=== PATIENT | female | born 1930 | race Caucasian/White ===

== ENCOUNTER 2018-01-15 18:26 | Inpatient (IN) | payer MEDICAID, MEDICARE ==
[~2018-01-15] VITALS: Ht 165.1 cm; Wt 78.0 kg
[2018-01-15] MEDS ORDERED: Z GUARD REMEDY PASTE 57 GM TUBE TOP PRN (18:30)
[2018-01-15] MEDS ORDERED: OLME40TA12 PO (18:35)
[2018-01-15] MEDS ORDERED: ROSU40TA PO (18:35)
[2018-01-15] MEDS ORDERED: SITA100T PO (18:35)
[2018-01-15] MEDS ORDERED: GLIM1TAB3 PO (18:35)
--- NOTE | 2018-01-15 18:44 | NUR ---
PT received from matthew buckley at 1815. report received from wilbur RASHEED. pt stable when vitals are assessed. mrsa swab done. called MD for orders. will continue to monitor.
[2018-01-15 20:00] VITALS: BP 111/53
[2018-01-15] MEDS: HYDROCODONE/APAP 5-325MG TABLET PO PRN (22:02)
--- NOTE | 2018-01-16 00:24 | NUR ---
Dr. Hassan ordered Lovenox for the patient,called the pharmacy to approved that at 2355. pharmacy preferred to wait until morning to have the lab result. Dr. Wright was aware. He clarified the order to give it to the patient without lab result. Pharmacy approved the medication for 0100. continue to monitor the patient for any bleeding.
[2018-01-16] MEDS: ZOLPIDEM 5 MG TABLET PO PRN (01:09)
[2018-01-16] MEDS: ENOXAPARIN SODIUM 30 MG/0.3 ML DISP.SYRIN SUBCUT SCH ×2 (01:13→21:03)
[2018-01-16] MEDS ORDERED: CLON0.1T PO (01:28)
[2018-01-16] MEDS ORDERED: ALLO300T2 PO (01:28)
[2018-01-16] MEDS ORDERED: CLON1TAB5 PO (01:28)
[2018-01-16] MEDS ORDERED: ESOM40CA PO (01:28)
[2018-01-16] MEDS ORDERED: CARV25TA2 PO (01:28)
[2018-01-16] MEDS ORDERED: AMLO5TAB2 PO (01:28)
[2018-01-16] MEDS ORDERED: DULO30CA2 PO (01:28)
[2018-01-16] MEDS ORDERED: CLOP75TA15 PO (01:28)
[2018-01-16] MEDS ORDERED: ASPI-605 PO (01:28)
[2018-01-16] MEDS ORDERED: GABA-534 PO (01:28)
[2018-01-16] MEDS: HYDROCODONE/APAP 5-325MG TABLET PO PRN (05:46)
[2018-01-16 07:16] LABS: BASOPHILS % (AUTO) 0.7 % (0.0-2.0); EOSINOPHILS % (AUTO) 0.2 % (0.0-7.0); HEMATOCRIT 36.1 % (31.2-41.9); HEMOGLOBIN 11.9 g/dL (10.9-14.3); LYMPHOCYTES # (AUTO) 1.5 K/uL (20.0-40.0); LYMPHOCYTES % (AUTO) 23.1 % (20.5-51.5); MEAN CORPUSCULAR HGB CONC 33 g/dL (32.3-35.6); MEAN CORPUSCULAR VOLUME 81.7 fL (75.5-95.3); MONOCYTES # (AUTO) 0.8 K/uL (2.0-10.0); MONOCYTES % (AUTO) 12.1 % (0.0-11.0); NEUTROPHILS # (AUTO) 4.3 K/uL (1.8-8.9); NEUTROPHILS % (AUTO) 63.9 % (38.5-71.5); PLATELET COUNT (AUTO) 181 K/uL (179-408); RED BLOOD CELL COUNT(AUTO) 4.42 MIL/uL (3.63-4.92); WHITE BLOOD COUNT (AUTO) 6.7 K/uL (3.8-11.8)
[2018-01-16 07:31] LABS: CARBON DIOXIDE 26 mmol/L (21-32); CHLORIDE 106 mmol/L (98-107); CHOLESTEROL 133 mg/dL (<200); GLUCOSE 130 mg/dL (74-106); HDL CHOLESTEROL 31 mg/dL (40-60); MAGNESIUM 2.1 mg/dL (1.8-2.4); PHOSPHOROUS 2.3 mg/dL (2.5-4.9); POTASSIUM 3.6 mmol/L (3.5-5.1); TRIGLYCERIDES 258 MG/DL (30-150); UREA NITROGEN, BLOOD 23 mg/dL (7-18)
[2018-01-16 08:00] VITALS: BP_SYST 132; BP_SYST 149; BP_DIAS 64; BP_DIAS 79
[2018-01-16] MEDS ORDERED: Medication Not On Formulary EA (Sitagliptin Phosphate (Januvia) 100 MG) PO SCH (09:00)
[2018-01-16] MEDS ORDERED: Medication Not On Formulary EA (Glimepiride 1 MG) PO SCH (09:00)
[2018-01-16] MEDS ORDERED: Medication Not On Formulary EA (Olmesartan Medoxomil (Benicar) 40 MG) PO SCH (09:00)
[2018-01-16] MEDS: GLIMEPIRIDE 2 MG TABLET PO SCH (09:18)
[2018-01-16] MEDS: LOSARTAN POTASSIUM 50 MG TABLET PO SCH (09:19)
[2018-01-16] MEDS: LINAGLIPTIN 5 MG TABLET PO SCH (09:19)
[2018-01-16] MEDS: HYDROCODONE/APAP 10-325 MG TABLET PO PRN ×3 (09:34→20:56)
--- NOTE | 2018-01-16 10:24 | NUR ---
Patient noted resting in bed at this time, complaints of right hip pain, MD Alvarez notified for increased dose of pain medication, [place] 10-325 mg ordered and administered, call light in reach, bed locked and in lowest position, all needs met at this time
--- NOTE | 2018-01-16 13:48 | NUR ---
INTERDISCIPLINARY TEAM CONFERENCE
[2018-01-16] MEDS ORDERED: NEUTRA PHOS PACKET PO ONE (15:15)
[2018-01-16 16:44] VITALS: BP 163/91
--- NOTE | 2018-01-16 17:57 | NUR ---
Patient took all medications this shift, pain managed with Luana 10-325mg given twice this shift, dressing changed and intact, small amount of blood tinged drainage noted on dressing, mepilex applied to sacrum, first step mattress delivered and placed on bed, all needs met
[2018-01-16 19:30] VITALS: BP 176/87
[2018-01-16] MEDS: hydrALAZINE HCL 10 MG TABLET PO PRN (20:57)
[2018-01-16] MEDS ORDERED: Medication Not On Formulary EA (Rosuvastatin Calcium (Crestor) 40 MG) PO SCH (21:00)
[2018-01-16] MEDS: ATORVASTATIN 40 MG TABLET PO SCH (21:00)
[2018-01-16 23:00] VITALS: BP 150/80
[2018-01-17] MEDS: ZOLPIDEM 5 MG TABLET PO PRN ×2 (02:15→21:19)
[2018-01-17] MEDS: hydrALAZINE HCL 10 MG TABLET PO PRN (04:43)
[2018-01-17] MEDS: HYDROCODONE/APAP 10-325 MG TABLET PO PRN ×4 (04:44→21:19)
--- NOTE | 2018-01-17 04:52 | NUR ---
pt took pain med Carmichael twice during shift , pt had Ambien for sleep , all needs met during shift . Bed locked and in low position , 3 rails up , and call light at bed .The BURL[employer] WORKER Christine Michele was called for elevated blood pressure and ordered hydralazine 10 mg . Pt hadn a blood pressure of 175 / 86 . Pt given hydralazine 10 mg and BP decreased to 150 / 70 . Pt had a BP of 186 / 98 , 7 hours later in shift . Pt given 10 mg of hydralazine .
[2018-01-17 06:09] VITALS: BP 168/80
[2018-01-17 08:00] VITALS: BP 173/86
[2018-01-17] MEDS: LINAGLIPTIN 5 MG TABLET PO SCH (08:09)
[2018-01-17] MEDS: GLIMEPIRIDE 2 MG TABLET PO SCH (08:10)
[2018-01-17] MEDS: LOSARTAN POTASSIUM 50 MG TABLET PO SCH (08:13)
--- NOTE | 2018-01-17 11:30 | NUR ---
Patient noted resting in bed at this time, complaints of right hip pain, PRN Nemo 10-325 mg administered, call light in reach, bed locked and in lowest position, all needs met at this time
[2018-01-17] MEDS: HYDROCODONE/APAP 5-325MG TABLET PO PRN (14:06)
--- NOTE | 2018-01-17 15:48 | NUR ---
LAB IN [facility] CALLED WITH RESULTS FOLLOWS 1) PATIENT IS POSITIVE FOR MRSA OF NARES MD IRVIN NOTIFIED WITH ORDERS FOR CONTACT ISOLATION AND BACTROBAN OINTMENT X 5 DAYS BID BILATERAL NARES
[2018-01-17] MEDS ORDERED: BISACODYL 5 MG TABLET.DR PO ONE (16:00)
[2018-01-17] MEDS ORDERED: BISACODYL 5 MG TABLET.DR PO PRN (16:15)
[2018-01-17 19:50] VITALS: BP 152/85
[2018-01-17] MEDS: ENOXAPARIN SODIUM 30 MG/0.3 ML DISP.SYRIN SUBCUT SCH (21:24)
[2018-01-17] MEDS: ATORVASTATIN 40 MG TABLET PO SCH (21:27)
[2018-01-17] MEDS: MUPIROCIN 2% OINT 22 GM TUBE NS SCH (21:27)
--- NOTE | 2018-01-17 21:57 | NUR ---
resting in bed. awake alert and oriented. no acute distress noted. needs attended. on contact isolation, (+) MRSA nares. medicated for pain as ordered. will monitor patient. fall precautions maintained.
[2018-01-18] MEDS: HYDROCODONE/APAP 10-325 MG TABLET PO PRN ×3 (02:48→20:32)
[2018-01-18] MEDS: HYDROCODONE/APAP 5-325MG TABLET PO PRN ×2 (06:28→16:47)
[2018-01-18 06:47] VITALS: BP 138/71
--- NOTE | 2018-01-18 07:54 | NUR ---
received report from maintenance technician 2nd shift. patient awake in bed upon initial assessment. patient appeared to have clear, fluid emesis in basin on her lap, small amount. patient refused breakfast, only requested coffee. pain medication provided by maintenance technician 2nd shift effective. will continue to monitor.
[2018-01-18] MEDS: GLIMEPIRIDE 2 MG TABLET PO SCH (08:45)
[2018-01-18] MEDS: LINAGLIPTIN 5 MG TABLET PO SCH (08:45)
[2018-01-18] MEDS: LOSARTAN POTASSIUM 50 MG TABLET PO SCH (08:51)
[2018-01-18] MEDS: MUPIROCIN 2% OINT 22 GM TUBE NS SCH ×2 (09:02→20:34)
[2018-01-18 16:12] VITALS: BP 105/53
[2018-01-18 20:00] VITALS: BP 127/55
[2018-01-18] MEDS: ATORVASTATIN 40 MG TABLET PO SCH (20:32)
[2018-01-18] MEDS: ENOXAPARIN SODIUM 30 MG/0.3 ML DISP.SYRIN SUBCUT SCH (20:35)
--- NOTE | 2018-01-18 22:43 | NUR ---
Received pt resting in bed. Eritrean speaking, able to make needs known. Family at bedside. C/o pain on the right hip surgical site. Meds given as ordered. Dressing changed, no s/s of infection noted. On air mattress. Turned and repositioned. Contact isolation observed. Safety measures maintained. Call light and personal belongings within reach. Will continue to monitor.
[2018-01-18] MEDS: ZOLPIDEM 5 MG TABLET PO PRN (23:41)
[2018-01-19] VITALS (7 sets, daily range): BP systolic 84–150; BP diastolic 41–68
[2018-01-19] MEDS: HYDROCODONE/APAP 10-325 MG TABLET PO PRN (06:46)
[2018-01-19] MEDS ORDERED: ALLOPURINOL 300 MG TABLET PO PRN (08:45)
[2018-01-19] MEDS: GLIMEPIRIDE 2 MG TABLET PO SCH (08:58)
[2018-01-19] MEDS: LOSARTAN POTASSIUM 50 MG TABLET PO SCH (08:58)
[2018-01-19] MEDS: LINAGLIPTIN 5 MG TABLET PO SCH (08:58)
[2018-01-19] MEDS: MUPIROCIN 2% OINT 22 GM TUBE NS SCH ×2 (08:59→20:55)
[2018-01-19] MEDS ORDERED: CARVEDILOL 25 MG TABLET PO SCH (09:00)
[2018-01-19] MEDS ORDERED: Medication Not On Formulary EA (Esomeprazole Mag Trihydrate (Nexium) 40 MG) PO SCH (09:00)
[2018-01-19] MEDS ORDERED: AMLODIPINE 5 MG TABLET PO SCH (09:00)
[2018-01-19] MEDS ORDERED: CLONAZEPAM 1 MG TABLET PO PRN (09:00)
[2018-01-19] MEDS: GABAPENTIN 300 MG CAPSULE PO SCH ×2 (09:06→17:14)
[2018-01-19] MEDS: CLOPIDOGREL 75 MG TABLET PO SCH (09:06)
[2018-01-19] MEDS: CLONIDINE HCL 0.1 MG TABLET PO SCH ×2 (09:07→12:10)
[2018-01-19] MEDS: DULOXETINE 30 MG CAPSULE.DR PO SCH (09:10)
[2018-01-19] MEDS: ASPIRIN EC 81 MG TABLET.DR PO SCH (09:16)
[2018-01-19] MEDS: HYDROCODONE/APAP 5-325MG TABLET PO PRN (09:59)
--- NOTE | 2018-01-19 10:53 | NUR ---
Received patient awake, alert and orientedx4. East Timorese speaking. able to communicate thru translation. Continue on pain management with good effect. no behavioral problem noted. Continue ABT treatment and contact isolation for MRSA. not in distress.
--- NOTE | 2018-01-19 11:11 | NUR ---
Patient blood pressure 63/38, notified. ordered STAT CBC BMP troponin and EKG. not in distress.will continue monitor
[2018-01-19 12:21] LABS: BASOPHILS # (AUTO) 0.1 K/uL (0.0-8.0); BASOPHILS % (AUTO) 0.6 % (0.0-2.0); EOSINOPHILS % (AUTO) 0.3 % (0.0-7.0); HEMATOCRIT 35.4 % (31.2-41.9); HEMOGLOBIN 11.6 g/dL (10.9-14.3); LYMPHOCYTES % (AUTO) 21.3 % (20.5-51.5); MEAN CORPUSCULAR HEMOGLOBIN 27.6 uug (24.7-32.8); MEAN CORPUSCULAR HGB CONC 33 g/dL (32.3-35.6); MEAN CORPUSCULAR VOLUME 84.5 fL (75.5-95.3); MONOCYTES # (AUTO) 0.8 K/uL (2.0-10.0); MONOCYTES % (AUTO) 9.1 % (0.0-11.0); NEUTROPHILS # (AUTO) 6.3 K/uL (1.8-8.9); NEUTROPHILS % (AUTO) 68.7 % (38.5-71.5); RED BLOOD CELL COUNT(AUTO) 4.19 MIL/uL (3.63-4.92)
[2018-01-19 12:29] LABS: CARBON DIOXIDE 26 mmol/L (21-32); CHLORIDE 103 mmol/L (98-107); CREATININE 1.3 mg/dL (0.6-1.3); GLUCOSE 140 mg/dL (74-106); POTASSIUM 3.6 mmol/L (3.5-5.1); UREA NITROGEN, BLOOD 28 mg/dL (7-18)
[2018-01-19 12:35] LABS: PLATELET COUNT (AUTO) 235 K/uL (179-408); WHITE BLOOD COUNT (AUTO) 9.2 K/uL (3.8-11.8)
--- NOTE | 2018-01-19 14:28 | NUR ---
Result of EKG relayed to MD Jiménez. ordered IV NS 1k bolus one time. IV site on left forearm. infusing well. will continue monitor
[2018-01-19] MEDS ORDERED: IV NORMAL SALINE 1,000 ML IV ONE ×2 (14:30)
--- NOTE | 2018-01-19 17:19 | NUR ---
Hold BP medication as per MD due to low BP. latest BP 90/51. Continue bolus of IV NS 1liter on left [id number] needle. BS 86, orange juice given. not in distress. Continue monitoring BP every 1 hour. will continue monitor
--- NOTE | 2018-01-19 19:30 | NUR ---
Received patient in bed, awake and alert, Kenyan speaking with a little Djiboutian. Denies any pain/discomforts at this time. Dressing on right hip dry and intact. RAC HL, intact and patent. Saturating 97% on 2L O2 via NC. HOB slightly elevated. Safety measures and fall precaution maintained. Continue care as planned.
[2018-01-19] MEDS: ENOXAPARIN SODIUM 30 MG/0.3 ML DISP.SYRIN SUBCUT SCH (21:00)
[2018-01-19] MEDS: ATORVASTATIN 40 MG TABLET PO SCH (21:01)
[2018-01-20] VITALS (10 sets, daily range): BP systolic 78–123; BP diastolic 39–63
[2018-01-20] MEDS: HYDROCODONE/APAP 10-325 MG TABLET PO PRN ×4 (04:45→21:00)
[2018-01-20] MEDS: PANTOPRAZOLE SODIUM 40 MG TABLET.DR PO SCH (06:15)
--- NOTE | 2018-01-20 06:48 | NUR ---
Shift End Report: Vs stable. BP WNL. Medicated once for pain with relief. No further complaint presented. Slept well. No fall/injury. No significant event reported. Continue current rehab plan
--- NOTE | 2018-01-20 07:55 | NUR ---
Patient noted resting in bed with eyes closed, no facial cues of pain noted, no signs of distress noted, call light placed in reach, bed locked and in lowest position, all needs met at this time
[2018-01-20] MEDS: GABAPENTIN 300 MG CAPSULE PO SCH ×2 (09:15→17:20)
[2018-01-20] MEDS: DULOXETINE 30 MG CAPSULE.DR PO SCH (09:15)
[2018-01-20] MEDS: CLOPIDOGREL 75 MG TABLET PO SCH (09:16)
[2018-01-20] MEDS: MUPIROCIN 2% OINT 22 GM TUBE NS SCH ×2 (09:16→20:59)
[2018-01-20] MEDS: LINAGLIPTIN 5 MG TABLET PO SCH (09:16)
[2018-01-20] MEDS: ASPIRIN EC 81 MG TABLET.DR PO SCH (09:16)
[2018-01-20] MEDS: GLIMEPIRIDE 2 MG TABLET PO SCH (09:16)
[2018-01-20] MEDS: ATORVASTATIN 40 MG TABLET PO SCH (20:59)
[2018-01-20] MEDS: ENOXAPARIN SODIUM 30 MG/0.3 ML DISP.SYRIN SUBCUT SCH (21:06)
--- NOTE | 2018-01-21 04:50 | NUR ---
alert and oriented x3-4 no acute distress noted. kept comfortable. needs attended. will monitor patient. VSS BP 123/60 HR 74 Resp 17 patient asymptomatic. incontinent of bladder x2. kept clean and dry. refused to be catheterized for urine sample. fall precautions maintained. siderails up for safety. moderate assist with ADL's.
[2018-01-21 05:06] VITALS: BP 134/65
[2018-01-21] MEDS: PANTOPRAZOLE SODIUM 40 MG TABLET.DR PO SCH (06:06)
--- NOTE | 2018-01-21 07:30 | NUR ---
Patient noted resting in bed with eyes closed, arouses easily, complaints of pain in right hip, no signs of distress noted, call light placed in reach, bed locked and in lowest position, all needs met at this time
[2018-01-21 08:23] VITALS: BP 154/69
[2018-01-21] MEDS: GABAPENTIN 300 MG CAPSULE PO SCH ×2 (08:47→17:36)
[2018-01-21] MEDS: LINAGLIPTIN 5 MG TABLET PO SCH (08:47)
[2018-01-21] MEDS: GLIMEPIRIDE 2 MG TABLET PO SCH (08:47)
[2018-01-21] MEDS: DULOXETINE 30 MG CAPSULE.DR PO SCH (08:47)
[2018-01-21] MEDS: CLOPIDOGREL 75 MG TABLET PO SCH (08:47)
[2018-01-21] MEDS: ASPIRIN EC 81 MG TABLET.DR PO SCH (08:47)
[2018-01-21] MEDS: HYDROCODONE/APAP 10-325 MG TABLET PO PRN ×2 (08:48→17:36)
[2018-01-21] MEDS: MUPIROCIN 2% OINT 22 GM TUBE NS SCH ×2 (08:49→21:36)
[2018-01-21 15:36] LABS: *BILIRUBIN,URIN NEGATIVE (NEGATIVE); *BLOOD, URINE Trace-intact (NEGATIVE); *CLARITY,URINE SLIGHTLY CLOUDY (CLEAR); *COLOR,URINE YELLOW (YELLOW); *KETONES,URINE NEGATIVE (NEGATIVE); *PROTEIN,URINE 1+ (NEGATIVE); LEUKOCYTE ESTERASE ,URINE 2+ (NEGATIVE); NITRITE, URINE NEGATIVE (NEGATIVE); UGLUCOSE NEGATIVE (NEGATIVE)
[2018-01-21 15:38] LABS: BACTERIA,URINE FEW /HPF (NONE SEEN); RBC,URINE 0-3 /HPF (0-3); SQUAMOUS EPITHELIAL CELL,UR FEW /HPF (NONE SEEN)
[2018-01-21 16:12] VITALS: BP 114/63
--- NOTE | 2018-01-21 19:24 | NUR ---
Urine analysis collected
[2018-01-21 19:31] VITALS: BP 144/77
[2018-01-21] MEDS: ENOXAPARIN SODIUM 30 MG/0.3 ML DISP.SYRIN SUBCUT SCH (21:30)
[2018-01-21] MEDS: ATORVASTATIN 40 MG TABLET PO SCH (21:33)
[2018-01-21] MEDS: HYDROCODONE/APAP 5-325MG TABLET PO PRN (21:35)
[2018-01-21] MEDS: CEPHALEXIN MONOHYDRATE 500 MG CAPSULE PO SCH (22:13)
[2018-01-22] MEDS: CEPHALEXIN MONOHYDRATE 500 MG CAPSULE PO SCH ×3 (05:22→21:13)
[2018-01-22 05:25] VITALS: BP 147/87
--- NOTE | 2018-01-22 05:41 | NUR ---
Pt slept well during the maintenance technician 3rd shift . Pt c/o pain and received pain medication . No signs of distress and VSS . Bed in low position , wheels locked , side rails up , and bed alarm is on . Pt has call light near her at all times . Pt received a bath at bedside and dressing was changed . Pt had a void x 1 and diaper was changed .
[2018-01-22] MEDS: PANTOPRAZOLE SODIUM 40 MG TABLET.DR PO SCH (06:10)
[2018-01-22] MEDS: HYDROCODONE/APAP 10-325 MG TABLET PO PRN ×3 (06:11→22:53)
--- NOTE | 2018-01-22 07:44 | NUR ---
Patient noted resting in bed with eyes closed, no facial cues of pain notes, no signs of distress at this time, call light in reach, bed locked and in lowest position, x [address], all needs met at this time
[2018-01-22 08:00] VITALS: BP 171/75
[2018-01-22] MEDS: GLIMEPIRIDE 2 MG TABLET PO SCH (08:14)
[2018-01-22] MEDS: LINAGLIPTIN 5 MG TABLET PO SCH (08:14)
[2018-01-22] MEDS: DULOXETINE 30 MG CAPSULE.DR PO SCH (08:14)
[2018-01-22] MEDS: ASPIRIN EC 81 MG TABLET.DR PO SCH (08:15)
[2018-01-22] MEDS: GABAPENTIN 300 MG CAPSULE PO SCH ×2 (08:15→16:58)
[2018-01-22] MEDS: CLOPIDOGREL 75 MG TABLET PO SCH (08:15)
[2018-01-22] MEDS: MUPIROCIN 2% OINT 22 GM TUBE NS SCH (08:18)
[2018-01-22 16:00] VITALS: BP 131/61
[2018-01-22 19:39] VITALS: BP 124/59
[2018-01-22] MEDS: ATORVASTATIN 40 MG TABLET PO SCH (20:14)
[2018-01-22] MEDS: ENOXAPARIN SODIUM 30 MG/0.3 ML DISP.SYRIN SUBCUT SCH (20:19)
--- NOTE | 2018-01-22 20:55 | NUR ---
Upon arrival to room , pt is sitting in the wheelchair with her family in the room . Pt did have assist with using the bathroom and had 1 BM . No signs of distress and no c/o pain . Pt is A & O x 4 , Rwandan speaking only .
[2018-01-22] MEDS: ZOLPIDEM 5 MG TABLET PO PRN (22:52)
[2018-01-23] MEDS: CEPHALEXIN MONOHYDRATE 500 MG CAPSULE PO SCH ×3 (05:30→21:19)
[2018-01-23 05:35] VITALS: BP 148/77
[2018-01-23] MEDS: PANTOPRAZOLE SODIUM 40 MG TABLET.DR PO SCH (06:15)
[2018-01-23 08:00] VITALS: BP 137/76
--- NOTE | 2018-01-23 08:00 | NUR ---
Patient alert, sitting on bed, verbally responsive, not in any form of acute distress. She denies any pain or discomfort at this time. Call light placed within reach. Needs attended to.
[2018-01-23] MEDS: GLIMEPIRIDE 2 MG TABLET PO SCH (08:55)
[2018-01-23] MEDS: DULOXETINE 30 MG CAPSULE.DR PO SCH (08:56)
[2018-01-23] MEDS: CLOPIDOGREL 75 MG TABLET PO SCH (08:56)
[2018-01-23] MEDS: LINAGLIPTIN 5 MG TABLET PO SCH (08:56)
[2018-01-23] MEDS: GABAPENTIN 300 MG CAPSULE PO SCH ×2 (08:56→16:37)
[2018-01-23] MEDS: ASPIRIN EC 81 MG TABLET.DR PO SCH (09:24)
[2018-01-23] MEDS: HYDROCODONE/APAP 5-325MG TABLET PO PRN ×2 (10:38→16:37)
--- NOTE | 2018-01-23 12:30 | NUR ---
Patient out of bed, ambulating with walker with physical therapist. No complain of pain or discomfort, not in any distress.
--- NOTE | 2018-01-23 13:20 | NUR ---
INTERDISCIPLINARY TEAM CONFERENCE
[2018-01-23 16:00] VITALS: BP 143/78
[2018-01-23 20:00] VITALS: BP 154/73
--- NOTE | 2018-01-23 20:59 | NUR ---
Received pt sitting on the wheelchair at bedside. South Korean speaking, able to make needs known. Assisted to the bathroom with assist. Pt now back to bed. No acute distress noted. No c/o pain or discomfort, no facial cues noted. Safety measures and contact isolation maintained. Bed alarm on. Call light and personal belongings within reach. Will continue to monitor.
[2018-01-23] MEDS: ATORVASTATIN 40 MG TABLET PO SCH (21:19)
[2018-01-23] MEDS: ZOLPIDEM 5 MG TABLET PO PRN (21:20)
[2018-01-23] MEDS: ENOXAPARIN SODIUM 30 MG/0.3 ML DISP.SYRIN SUBCUT SCH (21:21)
[2018-01-23 21:30] VITALS: BP 161/64
[2018-01-23] MEDS: hydrALAZINE HCL 10 MG TABLET PO PRN (21:33)
[2018-01-23 22:10] VITALS: BP 149/53
[2018-01-23] MEDS: HYDROCODONE/APAP 10-325 MG TABLET PO PRN (22:16)
--- NOTE | 2018-01-23 22:30 | NUR ---
At 2134, Apresoline was given due to elevated BP 161/64. HR WNL 82. No acute distress noted. No dizziness. Asymptomatic. At 2209, BP decreased to 149/ 53, HR 84. Will continue to monitor.
[2018-01-24] MEDS: CEPHALEXIN MONOHYDRATE 500 MG CAPSULE PO SCH ×3 (06:14→21:00)
[2018-01-24] MEDS: PANTOPRAZOLE SODIUM 40 MG TABLET.DR PO SCH (06:16)
[2018-01-24] MEDS: hydrALAZINE HCL 10 MG TABLET PO PRN (06:23)
[2018-01-24 06:26] VITALS: BP 168/76
--- NOTE | 2018-01-24 06:30 | NUR ---
Apresoline PRN given due to elevated BP of 168/ 76. HR WNL 81. Asymptomatic. No acute distress noted. No c/o pain, discomfort, or dizziness. Will recheck. Will continue to monitor.
[2018-01-24 07:03] VITALS: BP 149/58
--- NOTE | 2018-01-24 07:04 | NUR ---
BP decreased to 149/ 58, HR 79. Will endorse to day shift RN. Continue to monitor.
[2018-01-24 07:34] LABS: BASOPHILS # (AUTO) 0.1 K/uL (0.0-8.0); BASOPHILS % (AUTO) 0.8 % (0.0-2.0); EOSINOPHILS % (AUTO) 0.4 % (0.0-7.0); HEMATOCRIT 33.4 % (31.2-41.9); HEMOGLOBIN 11.1 g/dL (10.9-14.3); LYMPHOCYTES % (AUTO) 25.9 % (20.5-51.5); MEAN CORPUSCULAR HEMOGLOBIN 28.5 uug (24.7-32.8); MEAN CORPUSCULAR HGB CONC 33 g/dL (32.3-35.6); MEAN CORPUSCULAR VOLUME 85.9 fL (75.5-95.3); MONOCYTES # (AUTO) 0.8 K/uL (2.0-10.0); MONOCYTES % (AUTO) 10.6 % (0.0-11.0); NEUTROPHILS # (AUTO) 4.8 K/uL (1.8-8.9); NEUTROPHILS % (AUTO) 62.3 % (38.5-71.5); PLATELET COUNT (AUTO) 266 K/uL (179-408); RED BLOOD CELL COUNT(AUTO) 3.89 MIL/uL (3.63-4.92); WHITE BLOOD COUNT (AUTO) 7.7 K/uL (3.8-11.8)
[2018-01-24 07:54] LABS: THYROID STIMULATING HORMONE 2.076 mIU/mL (0.358-3.740)
--- NOTE | 2018-01-24 08:00 | NUR ---
Patient awake, in bed not in any form of acute distress. She denies any pain or discomfort at this time. Assisted to the bathroom for BM and to void. Pericare provided. Assisted with her needs. Call light placed within reach. Safety measures maintained.
[2018-01-24 08:16] LABS: ALANINE AMINOTRANSFERASE 70 U/L (14-59); ALKALINE PHOSPHATASE 305 U/L (50-136); ASPARTATE AMINOTRANSFERASE 89 U/L (15-37); BILIRUBIN,TOTAL 1.1 mg/dL (0.2-1.0); CARBON DIOXIDE 29 mmol/L (21-32); CHLORIDE 105 mmol/L (98-107); CREATININE 1.1 mg/dL (0.6-1.3); GLUCOSE 139 mg/dL (74-106); MAGNESIUM 1.9 mg/dL (1.8-2.4); PHOSPHOROUS 3.8 mg/dL (2.5-4.9); POTASSIUM 3.9 mmol/L (3.5-5.1); TOTAL PROTEIN, SERUM 5.6 g/dL (6.4-8.2); UREA NITROGEN, BLOOD 18 mg/dL (7-18)
[2018-01-24] MEDS: LINAGLIPTIN 5 MG TABLET PO SCH (08:43)
[2018-01-24] MEDS: GLIMEPIRIDE 2 MG TABLET PO SCH (08:43)
[2018-01-24] MEDS: ASPIRIN EC 81 MG TABLET.DR PO SCH (08:43)
[2018-01-24] MEDS: GABAPENTIN 300 MG CAPSULE PO SCH ×2 (08:43→18:16)
[2018-01-24] MEDS: DULOXETINE 30 MG CAPSULE.DR PO SCH (08:43)
[2018-01-24] MEDS: CLOPIDOGREL 75 MG TABLET PO SCH (08:43)
[2018-01-24 08:48] VITALS: BP 138/76
[2018-01-24] MEDS: HYDROCODONE/APAP 10-325 MG TABLET PO PRN ×2 (12:07→21:06)
[2018-01-24 15:43] VITALS: BP 132/70
--- NOTE | 2018-01-24 17:32 | NUR ---
Dr. Herbert came to see patient, notified MD regarding episodes of hypertension as reported by shift superintendent caustic cresylate nurse. Per MD he will look into it and review her medications. Vital signs throughout the shift were stable. Participated with PT/OT today and tolerated it. No complaints at this time. Addendum: 01/24/18 at 1823 by NISHA GIBBS RN Addendum: Informed MD about negative result of swab of nares for MRSA, MD said OK to discontinue isolation.
[2018-01-24] MEDS ORDERED: hydrALAZINE HCL 10 MG TABLET PO PRN (18:15)
--- NOTE | 2018-01-24 19:30 | NUR ---
PT ALERT AND ORIENTED IN WHEELCHAIR. NO DISTRESS NOTED. COMPLIANT WITH NURSING CARE. CLEAN AND DRY. HIP DRESSING INTACT. SAFETY MAINTAINED. CALL LIGHT WITHIN REACH. WILL CONTINUE TO MONITOR.
[2018-01-24 20:00] VITALS: BP 151/73
[2018-01-24] MEDS: ATORVASTATIN 20 MG TABLET PO SCH (21:00)
[2018-01-24] MEDS: ENOXAPARIN SODIUM 30 MG/0.3 ML DISP.SYRIN SUBCUT SCH (21:00)
[2018-01-25 05:00] VITALS: BP 149/68
[2018-01-25] MEDS: CEPHALEXIN MONOHYDRATE 500 MG CAPSULE PO SCH ×3 (06:09→21:31)
[2018-01-25] MEDS: PANTOPRAZOLE SODIUM 40 MG TABLET.DR PO SCH (06:09)
[2018-01-25] MEDS: HYDROCODONE/APAP 5-325MG TABLET PO PRN (06:09)
--- NOTE | 2018-01-25 06:39 | NUR ---
PT RESTING IN BED. NO DISTRESS NOTED. COMPLIANT WITH NURSING CARE AND MEDICATION. USED BATHROOM THROUGHOUT THE NIGHT, OFFERED TO CHANGE DIAPER AND CLEAN PT THIS MORNING, REFUSED. WILL ENDORSE TO DAYSHIFT. SAFETY MAINTAINED. CALL LIGHT WITHIN REACH. BED ALARM ON.
[2018-01-25] MEDS ORDERED: LISINOPRIL 5 MG TABLET PO SCH (09:00)
[2018-01-25] MEDS: ASPIRIN EC 81 MG TABLET.DR PO SCH (09:17)
[2018-01-25] MEDS: CLOPIDOGREL 75 MG TABLET PO SCH (09:17)
[2018-01-25] MEDS: GLIMEPIRIDE 2 MG TABLET PO SCH (09:17)
[2018-01-25] MEDS: DULOXETINE 30 MG CAPSULE.DR PO SCH (09:17)
[2018-01-25] MEDS: CYANOCOBALAMIN 1,000 MCG TABLET PO SCH (09:18)
[2018-01-25] MEDS: CHOLECALCIFEROL 1,000 UNIT TABLET PO SCH (09:18)
[2018-01-25] MEDS: LINAGLIPTIN 5 MG TABLET PO SCH (09:18)
[2018-01-25] MEDS: GABAPENTIN 300 MG CAPSULE PO SCH ×2 (09:18→17:26)
--- NOTE | 2018-01-25 10:56 | NUR ---
Patient noted sitting up in bed watching tv, no complaints of pain noted, no signs of distress noted, call light in reach, bed locked and in lowest position, x [address], assisted to restroom at this time
[2018-01-25 12:18] VITALS: BP 162/80
[2018-01-25] MEDS: HYDROCODONE/APAP 10-325 MG TABLET PO PRN ×2 (14:23→20:29)
--- NOTE | 2018-01-25 19:43 | NUR ---
Upon arrival to room , pt awake and sitting in wheelchair in room . Pt is A & O x4 , Sammarinese speaking mostly . No signs of distress , pt is c/o pain , a 5 out of 10 . Pt states she prefers to wait until later for pain medication . VSS
[2018-01-25 20:18] VITALS: BP 129/63
[2018-01-25] MEDS: ATORVASTATIN 20 MG TABLET PO SCH (20:27)
[2018-01-25] MEDS: LISINOPRIL 5 MG TABLET PO SCH (20:28)
[2018-01-25] MEDS: ZOLPIDEM 5 MG TABLET PO PRN (20:28)
[2018-01-25] MEDS: ENOXAPARIN SODIUM 30 MG/0.3 ML DISP.SYRIN SUBCUT SCH (20:34)
[2018-01-26] MEDS: CEPHALEXIN MONOHYDRATE 500 MG CAPSULE PO SCH ×3 (06:03→21:02)
[2018-01-26] MEDS: PANTOPRAZOLE SODIUM 40 MG TABLET.DR PO SCH (06:03)
[2018-01-26] MEDS: HYDROCODONE/APAP 5-325MG TABLET PO PRN (06:09)
[2018-01-26 07:00] VITALS: BP 149/65
[2018-01-26 07:26] LABS: BASOPHILS # (AUTO) 0.1 K/uL (0.0-8.0); EOSINOPHILS % (AUTO) 0.3 % (0.0-7.0); HEMATOCRIT 32.5 % (31.2-41.9); HEMOGLOBIN 10.8 g/dL (10.9-14.3); LYMPHOCYTES # (AUTO) 1.8 K/uL (20.0-40.0); LYMPHOCYTES % (AUTO) 27.9 % (20.5-51.5); MEAN CORPUSCULAR HEMOGLOBIN 28.5 uug (24.7-32.8); MEAN CORPUSCULAR HGB CONC 33 g/dL (32.3-35.6); MONOCYTES # (AUTO) 0.8 K/uL (2.0-10.0); MONOCYTES % (AUTO) 11.8 % (0.0-11.0); NEUTROPHILS # (AUTO) 3.8 K/uL (1.8-8.9); PLATELET COUNT (AUTO) 273 K/uL (179-408); RED BLOOD CELL COUNT(AUTO) 3.78 MIL/uL (3.63-4.92); WHITE BLOOD COUNT (AUTO) 6.4 K/uL (3.8-11.8)
[2018-01-26 07:44] LABS: ALANINE AMINOTRANSFERASE 44 U/L (14-59); ALKALINE PHOSPHATASE 210 U/L (50-136); ASPARTATE AMINOTRANSFERASE 30 U/L (15-37); BILIRUBIN,TOTAL 0.7 mg/dL (0.2-1.0); CARBON DIOXIDE 26 mmol/L (21-32); CHLORIDE 107 mmol/L (98-107); CREATININE 1.1 mg/dL (0.6-1.3); GLUCOSE 89 mg/dL (74-106); PHOSPHOROUS 4.2 mg/dL (2.5-4.9); TOTAL PROTEIN, SERUM 5.6 g/dL (6.4-8.2); UREA NITROGEN, BLOOD 27 mg/dL (7-18)
[2018-01-26] MEDS: ASPIRIN EC 81 MG TABLET.DR PO SCH (08:46)
[2018-01-26] MEDS: DULOXETINE 30 MG CAPSULE.DR PO SCH (08:46)
[2018-01-26] MEDS: CYANOCOBALAMIN 1,000 MCG TABLET PO SCH (08:47)
[2018-01-26] MEDS: GLIMEPIRIDE 2 MG TABLET PO SCH (08:47)
[2018-01-26] MEDS: CLOPIDOGREL 75 MG TABLET PO SCH (08:47)
[2018-01-26] MEDS: GABAPENTIN 300 MG CAPSULE PO SCH ×2 (08:47→17:06)
[2018-01-26] MEDS: CHOLECALCIFEROL 1,000 UNIT TABLET PO SCH (08:48)
[2018-01-26] MEDS: LISINOPRIL 5 MG TABLET PO SCH ×2 (08:49→20:49)
[2018-01-26] MEDS: LINAGLIPTIN 5 MG TABLET PO SCH (08:49)
[2018-01-26] MEDS: HYDROCODONE/APAP 10-325 MG TABLET PO PRN ×2 (13:45→20:49)
--- NOTE | 2018-01-26 18:28 | NUR ---
SBAR report received this morning, board updated. Pt assessed, no acute distress, SOB, or pain noted. VS WNL. Pt AAOx4. Bed in locked and lowest position with side rails up x2. Pt able to make needs known and sit up for all meals. Compliant with routine medication administration and therapies as provided. PRN pain medication administered once as ordered, Pt requests additional dose at a later time. Daughter visiting at bedside currently. All comfort and safety needs met promptly throughout this shift. No changes otherwise. Call light within reach. Will continue to monitor and endorse to oncoming evening or night nurse supervisor.
[2018-01-26 20:00] VITALS: BP 126/67
--- NOTE | 2018-01-26 20:00 | NUR ---
Received pt at the beginning of shift, sitting on the wheelchair at bedside. Serbian speaking, able to make needs known. MD at bedside. No acute distress noted. Safety measures maintained. Call light and personal belongings within reach. Will continue to monitor.
[2018-01-26] MEDS: ATORVASTATIN 20 MG TABLET PO SCH (20:48)
[2018-01-26] MEDS: ZOLPIDEM 5 MG TABLET PO PRN (20:49)
[2018-01-26] MEDS: ENOXAPARIN SODIUM 30 MG/0.3 ML DISP.SYRIN SUBCUT SCH (20:54)
[2018-01-27] MEDS: PANTOPRAZOLE SODIUM 40 MG TABLET.DR PO SCH (06:19)
[2018-01-27 06:38] VITALS: BP 145/63
--- NOTE | 2018-01-27 06:39 | NUR ---
Pt slept comfortably t/o the night. All needs attended to promptly. Assisted to the bathroom as needed. No s/s of infection on surgical site. Turned and repositioned. Will endorse to day shift RN. Continue to monitor.
[2018-01-27] MEDS: GABAPENTIN 300 MG CAPSULE PO SCH ×2 (08:22→16:50)
[2018-01-27] MEDS: DULOXETINE 30 MG CAPSULE.DR PO SCH (08:22)
[2018-01-27] MEDS: CLOPIDOGREL 75 MG TABLET PO SCH (08:22)
[2018-01-27] MEDS: CHOLECALCIFEROL 1,000 UNIT TABLET PO SCH (08:22)
[2018-01-27] MEDS: LINAGLIPTIN 5 MG TABLET PO SCH (08:23)
[2018-01-27] MEDS: ASPIRIN EC 81 MG TABLET.DR PO SCH (08:23)
[2018-01-27] MEDS: CYANOCOBALAMIN 1,000 MCG TABLET PO SCH (08:23)
[2018-01-27] MEDS: LISINOPRIL 5 MG TABLET PO SCH ×2 (08:23→20:47)
[2018-01-27] MEDS: GLIMEPIRIDE 2 MG TABLET PO SCH (08:23)
[2018-01-27] MEDS: ONDANSETRON HCL 4 MG TABLET PO PRN (10:08)
[2018-01-27] MEDS ORDERED: ONDANSETRON 4 MG/2 ML VIAL IV PRN (11:45)
[2018-01-27 12:51] LABS: BASOPHILS % (AUTO) 0.3 % (0.0-2.0); HEMATOCRIT 36.4 % (31.2-41.9); HEMOGLOBIN 11.7 g/dL (10.9-14.3); LYMPHOCYTES # (AUTO) 0.5 K/uL (20.0-40.0); LYMPHOCYTES % (AUTO) 3.9 % (20.5-51.5); MEAN CORPUSCULAR HGB CONC 32 g/dL (32.3-35.6); MEAN CORPUSCULAR VOLUME 87.1 fL (75.5-95.3); MONOCYTES # (AUTO) 0.5 K/uL (2.0-10.0); MONOCYTES % (AUTO) 4.5 % (0.0-11.0); NEUTROPHILS # (AUTO) 10.9 K/uL (1.8-8.9); NEUTROPHILS % (AUTO) 91.3 % (38.5-71.5); PLATELET COUNT (AUTO) 280 K/uL (179-408); RED BLOOD CELL COUNT(AUTO) 4.18 MIL/uL (3.63-4.92); WHITE BLOOD COUNT (AUTO) 11.9 K/uL (3.8-11.8)
[2018-01-27 13:08] LABS: ALANINE AMINOTRANSFERASE 105 U/L (14-59); ALKALINE PHOSPHATASE 517 U/L (50-136); ASPARTATE AMINOTRANSFERASE 226 U/L (15-37); BILIRUBIN,DIRECT 1.6 mg/dL (0.0-0.2); BILIRUBIN,TOTAL 2.5 mg/dL (0.2-1.0); CARBON DIOXIDE 27 mmol/L (21-32); CHLORIDE 104 mmol/L (98-107); CREATININE 1.2 mg/dL (0.6-1.3); GLUCOSE 223 mg/dL (74-106); POTASSIUM 3.9 mmol/L (3.5-5.1); TOTAL PROTEIN, SERUM 6.3 g/dL (6.4-8.2); UREA NITROGEN, BLOOD 17 mg/dL (7-18)
--- NOTE | 2018-01-27 14:34 | NUR ---
pt seemed lethargic and pt complaints of pain on abdomen. notified md. MD ordered cbc cmp lipase and lft. Also ordered troponin due to epigastric pain, vomiting and pt looking flushed. results came and trop negative. LFT and WBC elevated. vitals assessed and bp elevated 157/67 hr 90, 02 99 room air. temp 99.0. md ordered fluids. attempted iv insertion 4 times and unsuccessful. awaiting orders.
[2018-01-27 16:18] LABS: LIPASE > 6000 U/L (73-393)
[2018-01-27 16:47] VITALS: BP 111/53
[2018-01-27] MEDS: IV NS 1000 ML 1,000 ML IV SCH (18:25)
--- NOTE | 2018-01-27 18:48 | NUR ---
iv fluids running. encouraged pt to drink ensure. pt agreed. vitals stable. no signs of fever nor pain. will endorse to cage shift manager nurse.
[2018-01-27 20:08] VITALS: BP 156/75
[2018-01-27] MEDS: ATORVASTATIN 20 MG TABLET PO SCH (20:47)
[2018-01-27] MEDS: ENOXAPARIN SODIUM 30 MG/0.3 ML DISP.SYRIN SUBCUT SCH (20:50)
[2018-01-28] MEDS: IV NS 1000 ML 1,000 ML IV SCH ×3 (01:39→21:59)
[2018-01-28 04:31] VITALS: BP 156/62
[2018-01-28] MEDS: PANTOPRAZOLE SODIUM 40 MG TABLET.DR PO SCH (06:20)
[2018-01-28] MEDS: HYDROCODONE/APAP 5-325MG TABLET PO PRN ×3 (06:31→18:44)
[2018-01-28 06:49] LABS: ALANINE AMINOTRANSFERASE 299 U/L (14-59); ALKALINE PHOSPHATASE 532 U/L (50-136); ASPARTATE AMINOTRANSFERASE 449 U/L (15-37); BASOPHILS % (AUTO) 0.1 % (0.0-2.0); BILIRUBIN,DIRECT 1.9 mg/dL (0.0-0.2); BILIRUBIN,TOTAL 2.7 mg/dL (0.2-1.0); CARBON DIOXIDE 26 mmol/L (21-32); CHLORIDE 106 mmol/L (98-107); CREATININE 1.3 mg/dL (0.6-1.3); GLUCOSE 108 mg/dL (74-106); HEMATOCRIT 33.1 % (31.2-41.9); LYMPHOCYTES # (AUTO) 1.1 K/uL (20.0-40.0); LYMPHOCYTES % (AUTO) 11.6 % (20.5-51.5); MAGNESIUM 2.1 mg/dL (1.8-2.4); MEAN CORPUSCULAR HEMOGLOBIN 28.7 uug (24.7-32.8); MEAN CORPUSCULAR HGB CONC 33 g/dL (32.3-35.6); MONOCYTES # (AUTO) 0.8 K/uL (2.0-10.0); MONOCYTES % (AUTO) 8.1 % (0.0-11.0); NEUTROPHILS # (AUTO) 7.8 K/uL (1.8-8.9); NEUTROPHILS % (AUTO) 80.2 % (38.5-71.5); PHOSPHOROUS 3.6 mg/dL (2.5-4.9); PLATELET COUNT (AUTO) 255 K/uL (179-408); POTASSIUM 3.6 mmol/L (3.5-5.1); RED BLOOD CELL COUNT(AUTO) 3.85 MIL/uL (3.63-4.92); TOTAL PROTEIN, SERUM 5.8 g/dL (6.4-8.2); UREA NITROGEN, BLOOD 18 mg/dL (7-18); WHITE BLOOD COUNT (AUTO) 9.7 K/uL (3.8-11.8)
--- NOTE | 2018-01-28 06:53 | NUR ---
PT IN BED RESTING, C/O R HIP PAIN, WAS GIVEN WITH NORCO 1 TAB ORDERED.TURNED AND REPOSITIONED. IV FLUIDS STILL RUNNING ON L ARM MIDLINE. NO C/O NAUSEA/ VOMITING. AFEBRILE. SAFETY MEASURES RENDERED.
--- NOTE | 2018-01-28 06:57 | NUR ---
WOUND CARE DONE. PICTURES TAKEN PER PROTOCOL. PLACED IN CHART.
--- NOTE | 2018-01-28 08:00 | NUR ---
Patient awake, in bed, not in any form of acute distress. No complain of any pain. Denies any nausea or vomiting. Assisted with her needs. Call light placed within reach. Addendum: 01/28/18 at 1944 by NISHA GIBBS RN Addendum: Midline on the left AC in place and patent, IV NS running at 75cc/hr. On air mattress.
[2018-01-28 08:45] VITALS: BP 154/68
[2018-01-28] MEDS: LISINOPRIL 5 MG TABLET PO SCH (09:09)
[2018-01-28] MEDS: DULOXETINE 30 MG CAPSULE.DR PO SCH (09:09)
[2018-01-28] MEDS: GABAPENTIN 300 MG CAPSULE PO SCH ×2 (09:10→17:54)
[2018-01-28] MEDS: ASPIRIN EC 81 MG TABLET.DR PO SCH (09:10)
[2018-01-28] MEDS: LINAGLIPTIN 5 MG TABLET PO SCH (09:10)
[2018-01-28] MEDS: CLOPIDOGREL 75 MG TABLET PO SCH (09:10)
[2018-01-28] MEDS: CHOLECALCIFEROL 1,000 UNIT TABLET PO SCH (09:10)
[2018-01-28] MEDS: CYANOCOBALAMIN 1,000 MCG TABLET PO SCH (09:11)
[2018-01-28] MEDS: GLIMEPIRIDE 2 MG TABLET PO SCH (09:12)
--- NOTE | 2018-01-28 10:27 | NUR ---
Followed up with radiology regarding abdominal ultrasound result ordered 01/27/18 and per tech is not yet done and needs another order to be done today. Patient instructed for NPO prior procedure with verbalized understanding using phone local city driver [phone].
[2018-01-28] MEDS: hydrALAZINE HCL 25 MG TABLET PO PRN (11:18)
[2018-01-28 16:00] VITALS: BP 139/59
--- NOTE | 2018-01-28 16:30 | NUR ---
Assisted patient to the bathroom, perineal care done. Urine specimen collected and brought to the laboratory. Back in bed comfortably. Maintained on air mattress. Safety measures maintained. Call light placed within reach.
[2018-01-28 16:51] LABS: *BILIRUBIN,URIN 1+ (NEGATIVE); *BLOOD, URINE NEGATIVE (NEGATIVE); *KETONES,URINE NEGATIVE (NEGATIVE); *PROTEIN,URINE 1+ (NEGATIVE); LEUKOCYTE ESTERASE ,URINE 1+ (NEGATIVE); NITRITE, URINE NEGATIVE (NEGATIVE); UGLUCOSE NEGATIVE (NEGATIVE)
[2018-01-28 17:53] LABS: *CLARITY,URINE HAZY (CLEAR); *COLOR,URINE DARK YELLOW (YELLOW)
[2018-01-28] MEDS: CARVEDILOL 6.25 MG TABLET PO SCH (17:54)
[2018-01-28 17:56] LABS: BACTERIA,URINE FEW /HPF (NONE SEEN); SQUAMOUS EPITHELIAL CELL,UR MODERATE /HPF (NONE SEEN); TRANSITIONAL EPI CELLS,URINE FEW /LPF (NONE SEEN); YEAST,URINE MANY /HPF (NONE SEEN)
[2018-01-28 17:57] LABS: MUCUS,URINE FEW /LPF (0-FEW)
--- NOTE | 2018-01-28 19:55 | NUR ---
Upon arrival , pt in bed in low sandra's position and awake . Pt is in no distress and has no c/o pain . Bed in low position , wheels locked , bed alarm on , call light is at bed near pt . Family is in room .
[2018-01-28 20:05] VITALS: BP 125/57
[2018-01-28] MEDS: ZOLPIDEM 5 MG TABLET PO PRN (21:09)
[2018-01-28] MEDS: ATORVASTATIN 20 MG TABLET PO SCH (21:09)
[2018-01-28] MEDS: ENOXAPARIN SODIUM 30 MG/0.3 ML DISP.SYRIN SUBCUT SCH (21:14)
[2018-01-29] MEDS: HYDROCODONE/APAP 5-325MG TABLET PO PRN ×3 (06:16→19:47)
[2018-01-29] MEDS: PANTOPRAZOLE SODIUM 40 MG TABLET.DR PO SCH (06:16)
[2018-01-29] MEDS: hydrALAZINE HCL 25 MG TABLET PO PRN (06:17)
[2018-01-29 06:44] VITALS: BP 168/78
[2018-01-29 06:55] LABS: BASOPHILS % (AUTO) 0.4 % (0.0-2.0); EOSINOPHILS % (AUTO) 0.1 % (0.0-7.0); HEMOGLOBIN 10.5 g/dL (10.9-14.3); LYMPHOCYTES # (AUTO) 0.7 K/uL (20.0-40.0); LYMPHOCYTES % (AUTO) 10.8 % (20.5-51.5); MEAN CORPUSCULAR HEMOGLOBIN 28.6 uug (24.7-32.8); MEAN CORPUSCULAR HGB CONC 33 g/dL (32.3-35.6); MEAN CORPUSCULAR VOLUME 86.9 fL (75.5-95.3); MONOCYTES # (AUTO) 0.5 K/uL (2.0-10.0); MONOCYTES % (AUTO) 6.9 % (0.0-11.0); NEUTROPHILS # (AUTO) 5.6 K/uL (1.8-8.9); NEUTROPHILS % (AUTO) 81.8 % (38.5-71.5); PLATELET COUNT (AUTO) 200 K/uL (179-408); RED BLOOD CELL COUNT(AUTO) 3.68 MIL/uL (3.63-4.92); WHITE BLOOD COUNT (AUTO) 6.8 K/uL (3.8-11.8)
--- NOTE | 2018-01-29 07:04 | NUR ---
End of Shift . Pt slept throughout the shift . Pt had c/o pain to right leg , . Pt was given pain medication. Pt had a BP of 168 / 78 at 0617 , was given hydralazine 25 mg . Rechecked BP at 0700 and was 143 / 64 .
[2018-01-29 07:12] LABS: ALANINE AMINOTRANSFERASE 244 U/L (14-59); ALKALINE PHOSPHATASE 430 U/L (50-136); ASPARTATE AMINOTRANSFERASE 247 U/L (15-37); BILIRUBIN,TOTAL 1.6 mg/dL (0.2-1.0); CARBON DIOXIDE 24 mmol/L (21-32); CHLORIDE 107 mmol/L (98-107); CREATININE 0.9 mg/dL (0.6-1.3); GLUCOSE 52 mg/dL (74-106); LIPASE 933 U/L (73-393); PHOSPHOROUS 3.4 mg/dL (2.5-4.9); POTASSIUM 4.1 mmol/L (3.5-5.1); TOTAL PROTEIN, SERUM 5.6 g/dL (6.4-8.2); UREA NITROGEN, BLOOD 14 mg/dL (7-18)
[2018-01-29] MEDS ORDERED: LISINOPRIL 5 MG TABLET PO SCH (09:00)
[2018-01-29] MEDS: GLIMEPIRIDE 2 MG TABLET PO SCH (09:41)
[2018-01-29] MEDS: LINAGLIPTIN 5 MG TABLET PO SCH (09:41)
[2018-01-29] MEDS: GABAPENTIN 300 MG CAPSULE PO SCH ×2 (09:41→16:52)
[2018-01-29] MEDS: DULOXETINE 30 MG CAPSULE.DR PO SCH (09:41)
[2018-01-29] MEDS: CYANOCOBALAMIN 1,000 MCG TABLET PO SCH (09:41)
[2018-01-29] MEDS: CHOLECALCIFEROL 1,000 UNIT TABLET PO SCH (09:42)
[2018-01-29] MEDS: CLOPIDOGREL 75 MG TABLET PO SCH (09:42)
[2018-01-29] MEDS: ASPIRIN EC 81 MG TABLET.DR PO SCH (09:43)
[2018-01-29] MEDS: CARVEDILOL 6.25 MG TABLET PO SCH ×2 (09:48→16:56)
[2018-01-29] MEDS: LISINOPRIL 20 MG TABLET PO SCH ×2 (09:49→16:56)
[2018-01-29 10:09] VITALS: BP 150/64
[2018-01-29] MEDS: IV NS 1000 ML 1,000 ML IV SCH (16:56)
[2018-01-29 16:57] VITALS: BP 151/64
[2018-01-29] MEDS: IV NS 1000 ML 1,000 ML IV PRN (19:57)
[2018-01-29 20:05] VITALS: BP 129/47
--- NOTE | 2018-01-29 20:22 | NUR ---
Upon arrival pt is awake and sitting in bed in semi fowlers position . Pt is c/o pain in right leg , pain is 8 /10 . Pt given pain medication . Bed is in low position , wheels locked , bed alarm on , side rails up x 3, and call light is at bedside near pt . VSS .
[2018-01-29] MEDS: ZOLPIDEM 5 MG TABLET PO PRN (21:00)
[2018-01-29] MEDS: ATORVASTATIN 20 MG TABLET PO SCH (21:00)
[2018-01-29] MEDS: ENOXAPARIN SODIUM 30 MG/0.3 ML DISP.SYRIN SUBCUT SCH (21:03)
--- NOTE | 2018-01-29 22:06 | NUR ---
Bladder scan done and noted to be 693 ml. No acute distress noted. Denies pain or discomfort in lower abdomen, but c/o pain up right upper abd quadrant. No noted grimacing or facial expression indicating pain when bladder scan being done. Per pt, does not need to use the restroom right now. paged. Awaiting response.
--- NOTE | 2018-01-29 22:33 | NUR ---
MD Tinajero called back with no new orders, per MD "just monitor and give her a chance to pee." Safety maintained. Call light within reach. Order noted. Will continue to monitor.
--- NOTE | 2018-01-30 06:04 | NUR ---
Pt voided well x 1 in toilet after encouragement from staff. Assisted to the restroom with walker x 1 person assist. No acute distress. Denies pain or discomfort at this time. No complaints of pain throughout the night. Slept comfortably throughout shift. Safety maintained. Pt assisted back into bed. All due medications well tolerated. Call light and all personal belongings within reach. Will continue to monitor. Will endorse to AM shift.
[2018-01-30] MEDS: PANTOPRAZOLE SODIUM 40 MG TABLET.DR PO SCH (06:05)
[2018-01-30] MEDS: hydrALAZINE HCL 25 MG TABLET PO PRN (06:06)
[2018-01-30] MEDS: HYDROCODONE/APAP 5-325MG TABLET PO PRN ×3 (06:11→17:44)
[2018-01-30 06:22] VITALS: BP 172/69
[2018-01-30 06:36] LABS: BASOPHILS % (AUTO) 0.3 % (0.0-2.0); EOSINOPHILS % (AUTO) 0.2 % (0.0-7.0); HEMOGLOBIN 10.5 g/dL (10.9-14.3); LYMPHOCYTES # (AUTO) 0.8 K/uL (20.0-40.0); LYMPHOCYTES % (AUTO) 10.8 % (20.5-51.5); MEAN CORPUSCULAR HEMOGLOBIN 28.5 uug (24.7-32.8); MEAN CORPUSCULAR HGB CONC 33 g/dL (32.3-35.6); MONOCYTES # (AUTO) 0.5 K/uL (2.0-10.0); MONOCYTES % (AUTO) 7.4 % (0.0-11.0); NEUTROPHILS # (AUTO) 5.7 K/uL (1.8-8.9); NEUTROPHILS % (AUTO) 81.3 % (38.5-71.5); PLATELET COUNT (AUTO) 173 K/uL (179-408); RED BLOOD CELL COUNT(AUTO) 3.67 MIL/uL (3.63-4.92)
[2018-01-30 06:51] LABS: ALANINE AMINOTRANSFERASE 185 U/L (14-59); ALKALINE PHOSPHATASE 431 U/L (50-136); ASPARTATE AMINOTRANSFERASE 128 U/L (15-37); BILIRUBIN,DIRECT 0.7 mg/dL (0.0-0.2); BILIRUBIN,TOTAL 1.2 mg/dL (0.2-1.0); CARBON DIOXIDE 26 mmol/L (21-32); CHLORIDE 109 mmol/L (98-107); POTASSIUM 4.4 mmol/L (3.5-5.1); TOTAL PROTEIN, SERUM 5.5 g/dL (6.4-8.2); UREA NITROGEN, BLOOD 13 mg/dL (7-18)
[2018-01-30 06:53] LABS: GLUCOSE 46 mg/dL (74-106)
--- NOTE | 2018-01-30 06:59 | NUR ---
Lab reported critical value of glucose 46. Patient is alert and oriented, able to verbalize needs. No acute distress noted. paged. Awaiting response. OJ given. Tolerated well. Will re-check sugar. Will continue to monitor.
--- NOTE | 2018-01-30 07:22 | NUR ---
Blood sugar re-checked and noted to be 45. Patient is noted to be agitated, complaining that she wants to sleep. Alert and oriented. No acute distress. No noted signs of hypoglycemia. OJ given again. Awaiting response from . Endorsed to AM shift.
--- NOTE | 2018-01-30 07:57 | NUR ---
Patient awake in bed, alert, verbally responsive, not in any form of acute distress. Blood sugar rechecked 95. Assisted with her breakfast. Attended to her needs. States decreased pain with the pain medication provided by night nurse. No complain of nausea, no vomiting. Call light placed within reach. Midline on the left forearm in place and patent, no noted signs of infection, IV NS running at 60cc/hr. Safety measures maintained. Received a call back from Dr. Tinajero and ordered to do Accu-checks AC and HS. ordered to hold dose of glimepiride and trajenta.
[2018-01-30] MEDS: CARVEDILOL 12.5 MG TABLET PO SCH ×2 (08:00→17:19)
[2018-01-30] MEDS ORDERED: DEXTROSE 50% 50 ML DISP.SYRIN IV PRN (08:00)
[2018-01-30] MEDS ORDERED: INSULIN REGULAR, HUMAN 300 UNIT/3 ML VIAL SQ PRN (08:00)
[2018-01-30] MEDS ORDERED: CARVEDILOL 6.25 MG TABLET PO SCH (08:00)
[2018-01-30] MEDS: GLIMEPIRIDE 2 MG TABLET PO SCH (08:00)
--- NOTE | 2018-01-30 08:30 | NUR ---
Informed patient regarding appointment with surgeon. Assisted patient to the bathroom, she voided and had a BM. Perineal care provided. Ambulated with walker.
--- NOTE | 2018-01-30 08:50 | NUR ---
Patient picked up by [facility] crew via [facility] for appointment with Dr. Morales for follow up, provided list of meds and CD of right hip x-ray. Patient remains alert, verbally responsive, not in any form of acute distress.
[2018-01-30] MEDS: LINAGLIPTIN 5 MG TABLET PO SCH (09:00)
[2018-01-30 09:06] VITALS: BP 108/50
--- NOTE | 2018-01-30 11:00 | NUR ---
Patient back from appointment with Dr. Morales. removed candace on the right hip and applied steri-strips. MD ordered weight bearing as tolerated with assist and to follow up in 6 weeks. Patient alert, not in distress, complaining of 10/10 pain on the right hip. Given PRN Runge as ordered.
[2018-01-30] MEDS: ASPIRIN EC 81 MG TABLET.DR PO SCH (11:08)
[2018-01-30] MEDS: CHOLECALCIFEROL 1,000 UNIT TABLET PO SCH (11:08)
[2018-01-30] MEDS: DULOXETINE 30 MG CAPSULE.DR PO SCH (11:08)
[2018-01-30] MEDS: CYANOCOBALAMIN 1,000 MCG TABLET PO SCH (11:11)
[2018-01-30] MEDS: CLOPIDOGREL 75 MG TABLET PO SCH (11:11)
[2018-01-30] MEDS: LISINOPRIL 20 MG TABLET PO SCH ×2 (11:13→17:19)
[2018-01-30] MEDS: GABAPENTIN 300 MG CAPSULE PO SCH ×2 (11:13→17:19)
[2018-01-30] MEDS: BLOOD SUGAR DIAGNOSTIC 1 EACH STRIP VI SCH ×3 (12:16→21:32)
[2018-01-30] MEDS: IV NS 1000 ML 1,000 ML IV PRN (12:49)
--- NOTE | 2018-01-30 13:00 | NUR ---
Blood sugar 49, patient remains alert, coherent, not in any form of distress, sitting up on the wheelchair, no noted symptoms. Provided with orange juice. Blood sugar went up to 109. Then provided patient with her lunch.
--- NOTE | 2018-01-30 13:41 | NUR ---
INTERDISCIPLINARY TEAM CONFERENCE
--- NOTE | 2018-01-30 14:32 | NUR ---
Received an order from Dr. Holder to advance diet to full liquid diet then to soft diet tomorrow if patient tolerates it.
[2018-01-30 14:45] VITALS: BP 141/56
[2018-01-30 16:45] VITALS: BP 141/56
--- NOTE | 2018-01-30 19:20 | NUR ---
Received patient up in the chair watching TV at this time. Denies any pain/discomforts. No s/s of respiratory distress. Assisted back to bed, repositioned for comfort. Safety measures and fall precaution maintained. Continue care as planned.
[2018-01-30 20:00] VITALS: BP 106/66
--- NOTE | 2018-01-30 21:00 | NUR ---
BS 73 mg/dl apple sauce and apple juice given. Will monitor.
[2018-01-30] MEDS: ATORVASTATIN 20 MG TABLET PO SCH (21:28)
[2018-01-30] MEDS: ENOXAPARIN SODIUM 30 MG/0.3 ML DISP.SYRIN SUBCUT SCH (21:33)
[2018-01-30] MEDS: ZOLPIDEM 5 MG TABLET PO PRN (21:36)
[2018-01-30] MEDS ORDERED: TRAV5DRO EACHEYE (22:25)
[2018-01-30] MEDS ORDERED: DORZ10DR10 OP (22:25)
[2018-01-30] MEDS ORDERED: BRIM5DRO3 OP (22:25)
[2018-01-31 05:51] VITALS: BP 133/61
[2018-01-31] MEDS: PANTOPRAZOLE SODIUM 40 MG TABLET.DR PO SCH (06:46)
[2018-01-31] MEDS: BLOOD SUGAR DIAGNOSTIC 1 EACH STRIP VI SCH ×4 (06:49→20:49)
--- NOTE | 2018-01-31 06:55 | NUR ---
BS 70 mg/dl Gave Apple sauce with AM meds and Apple juice to avoid hypoglycemia episode. Will monitor.
--- NOTE | 2018-01-31 07:26 | NUR ---
Shift End Report: Slept well. VS stable. Monitored for possible hypoglycemia due to latest hypoglycemia episodes. Apple sauce and apple juice given , tolerated well. Right hip steri strips dry, clean and intact. Able to turn self from side to side without difficulty. Able to assist with ADL's. All needs attended and met. No significant event reported all night. Continue current rehab plan.
[2018-01-31] MEDS: GLIMEPIRIDE 2 MG TABLET PO SCH (08:00)
[2018-01-31] MEDS: CARVEDILOL 12.5 MG TABLET PO SCH ×2 (08:25→17:36)
[2018-01-31] MEDS: CHOLECALCIFEROL 1,000 UNIT TABLET PO SCH (08:26)
[2018-01-31] MEDS: ASPIRIN EC 81 MG TABLET.DR PO SCH (08:26)
[2018-01-31] MEDS: CLOPIDOGREL 75 MG TABLET PO SCH (08:26)
[2018-01-31] MEDS: CYANOCOBALAMIN 1,000 MCG TABLET PO SCH (08:27)
[2018-01-31] MEDS: DULOXETINE 30 MG CAPSULE.DR PO SCH (08:33)
[2018-01-31] MEDS: LISINOPRIL 20 MG TABLET PO SCH ×2 (08:33→17:35)
[2018-01-31] MEDS: GABAPENTIN 300 MG CAPSULE PO SCH ×2 (08:35→17:35)
--- NOTE | 2018-01-31 08:45 | NUR ---
Dr. Tinajero saw patient, notified him regarding glimepiride and trajenta dose and current blood sugar and MD ordered to hold the said medications for now. MD also ordered to advance diet to soft cardiac diet.
[2018-01-31] MEDS: LINAGLIPTIN 5 MG TABLET PO SCH (09:00)
[2018-01-31] MEDS: HYDROCODONE/APAP 5-325MG TABLET PO PRN ×2 (09:11→20:51)
[2018-01-31 16:30] VITALS: BP 100/56
--- NOTE | 2018-01-31 19:20 | NUR ---
Received patient up on wheelchair. Daughter at bedside, presented concerns and questions about patient's care. Able to answers and resolved all concerns. Assisted patient to bathroom with walker and to bed. Safety measures and fall precaution maintained.Continue current plan of care.
[2018-01-31 20:32] VITALS: BP 116/69
[2018-01-31] MEDS: ATORVASTATIN 20 MG TABLET PO SCH (20:41)
[2018-01-31] MEDS: ENOXAPARIN SODIUM 30 MG/0.3 ML DISP.SYRIN SUBCUT SCH (20:44)
[2018-01-31] MEDS: ZOLPIDEM 5 MG TABLET PO PRN (20:51)
[2018-02-01 05:29] VITALS: BP 151/51
--- NOTE | 2018-02-01 06:09 | NUR ---
Shift End Report: VS stable. Slept good. Medicated once for complaint of right hip pain with relief. No further complaint presented. No s/s of hypo/hyperglycemia. No fall/injury. Safety measures and fall precaution maintained. All needs attended and met. Continue rehab care as planned
[2018-02-01 06:32] LABS: BASOPHILS % (AUTO) 0.4 % (0.0-2.0); EOSINOPHILS % (AUTO) 0.2 % (0.0-7.0); HEMATOCRIT 31.5 % (31.2-41.9); HEMOGLOBIN 10.2 g/dL (10.9-14.3); LYMPHOCYTES # (AUTO) 0.9 K/uL (20.0-40.0); LYMPHOCYTES % (AUTO) 15.5 % (20.5-51.5); MEAN CORPUSCULAR HGB CONC 32 g/dL (32.3-35.6); MEAN CORPUSCULAR VOLUME 86.7 fL (75.5-95.3); MONOCYTES # (AUTO) 0.5 K/uL (2.0-10.0); MONOCYTES % (AUTO) 7.9 % (0.0-11.0); NEUTROPHILS # (AUTO) 4.7 K/uL (1.8-8.9); PLATELET COUNT (AUTO) 155 K/uL (179-408); RED BLOOD CELL COUNT(AUTO) 3.63 MIL/uL (3.63-4.92); WHITE BLOOD COUNT (AUTO) 6.1 K/uL (3.8-11.8)
[2018-02-01 06:38] LABS: ALANINE AMINOTRANSFERASE 141 U/L (14-59); ALKALINE PHOSPHATASE 449 U/L (50-136); ASPARTATE AMINOTRANSFERASE 102 U/L (15-37); BILIRUBIN,DIRECT 0.5 mg/dL (0.0-0.2); CARBON DIOXIDE 23 mmol/L (21-32); CHLORIDE 108 mmol/L (98-107); CREATININE 0.9 mg/dL (0.6-1.3); GLUCOSE 107 mg/dL (74-106); POTASSIUM 4.2 mmol/L (3.5-5.1); TOTAL PROTEIN, SERUM 5.6 g/dL (6.4-8.2); UREA NITROGEN, BLOOD 13 mg/dL (7-18)
[2018-02-01] MEDS: PANTOPRAZOLE SODIUM 40 MG TABLET.DR PO SCH (07:09)
[2018-02-01] MEDS: BLOOD SUGAR DIAGNOSTIC 1 EACH STRIP VI SCH ×5 (07:12→20:39)
[2018-02-01] MEDS: CHOLECALCIFEROL 1,000 UNIT TABLET PO SCH (08:28)
[2018-02-01] MEDS: DULOXETINE 30 MG CAPSULE.DR PO SCH (08:28)
[2018-02-01] MEDS: CLOPIDOGREL 75 MG TABLET PO SCH (08:29)
[2018-02-01] MEDS: LINAGLIPTIN 5 MG TABLET PO SCH (08:29)
[2018-02-01] MEDS: GLIMEPIRIDE 2 MG TABLET PO SCH (08:29)
[2018-02-01] MEDS: GABAPENTIN 300 MG CAPSULE PO SCH ×2 (08:29→17:21)
[2018-02-01] MEDS: CYANOCOBALAMIN 1,000 MCG TABLET PO SCH (08:29)
[2018-02-01] MEDS: ASPIRIN EC 81 MG TABLET.DR PO SCH (08:29)
[2018-02-01] MEDS: LISINOPRIL 20 MG TABLET PO SCH ×2 (08:30→17:00)
[2018-02-01] MEDS: CARVEDILOL 12.5 MG TABLET PO SCH ×2 (08:30→17:25)
[2018-02-01 08:34] VITALS: BP 141/61
[2018-02-01] MEDS: HYDROCODONE/APAP 5-325MG TABLET PO PRN (13:33)
[2018-02-01 20:08] VITALS: BP 125/51
[2018-02-01] MEDS: ATORVASTATIN 20 MG TABLET PO SCH (20:34)
[2018-02-01] MEDS: ENOXAPARIN SODIUM 30 MG/0.3 ML DISP.SYRIN SUBCUT SCH (20:38)
--- NOTE | 2018-02-02 05:16 | NUR ---
quiet night. no acute distress noted. needs attended. incontinent of bowel and bladder. kept clean and dry. VSS will monitor patient.fall precautions maintained.siderails up for safety.
[2018-02-02 05:54] VITALS: BP 156/68
[2018-02-02] MEDS: PANTOPRAZOLE SODIUM 40 MG TABLET.DR PO SCH (06:20)
[2018-02-02] MEDS: HYDROCODONE/APAP 5-325MG TABLET PO PRN ×3 (06:20→20:55)
[2018-02-02] MEDS: BLOOD SUGAR DIAGNOSTIC 1 EACH STRIP VI SCH ×4 (06:23→20:58)
--- NOTE | 2018-02-02 08:15 | NUR ---
SBAR report received, board updated. Pt assessed, AAO. Pt denies pain at this time, with no acute distress evident. Pt compliant with all routine medication administration and therapies as planned. VS 145/61, 67, 100% RA, and 98.3 temp. Bed in locked and lowest position. Pt sitting up in wheelchair for breakfast. All comfort and safety needs met at this time. Call light within reach. Will continue to monitor.
[2018-02-02] MEDS: CYANOCOBALAMIN 1,000 MCG TABLET PO SCH (08:45)
[2018-02-02] MEDS: CLOPIDOGREL 75 MG TABLET PO SCH (08:45)
[2018-02-02] MEDS: CHOLECALCIFEROL 1,000 UNIT TABLET PO SCH (08:45)
[2018-02-02] MEDS: GLIMEPIRIDE 2 MG TABLET PO SCH (08:45)
[2018-02-02] MEDS: DULOXETINE 30 MG CAPSULE.DR PO SCH (08:45)
[2018-02-02] MEDS: LINAGLIPTIN 5 MG TABLET PO SCH (08:45)
[2018-02-02] MEDS: ASPIRIN EC 81 MG TABLET.DR PO SCH (08:45)
[2018-02-02] MEDS: GABAPENTIN 300 MG CAPSULE PO SCH ×2 (08:45→17:00)
[2018-02-02] MEDS: LISINOPRIL 20 MG TABLET PO SCH ×2 (08:47→17:00)
[2018-02-02] MEDS: CARVEDILOL 12.5 MG TABLET PO SCH ×2 (08:47→18:00)
--- NOTE | 2018-02-02 15:01 | NUR ---
Pt returned from therapy with decreased BP of 89/42, 60, 97% on RA, c/o pain. Pt placed back into bed, reassessed VS of 93/41, 60, 97% RA with temp of 98.1. MD notified of decreased BP and recent UA results, stating he will review, and to continue monitoring. Latest VS include 103/43, 63, and medicated for pain, plus ice patch applied. Will continue to monitor progress.
[2018-02-02 20:03] VITALS: BP 118/56
[2018-02-02] MEDS: ATORVASTATIN 20 MG TABLET PO SCH (20:54)
[2018-02-02] MEDS: ENOXAPARIN SODIUM 30 MG/0.3 ML DISP.SYRIN SUBCUT SCH (21:00)
--- NOTE | 2018-02-03 00:12 | NUR ---
Resting comfortably in bed. aaox4 no acute distress noted needs attended. VSS. BP 118/56 HR 70 resp 18 pulse ox 98% RA Afebrile. Medicated for pain as needed. Compliant with ADL's. Incontinent of urine x2. Kept clean and dry. Slept well throughout the night. Kept comfortable. Siderails up for safety.
[2018-02-03 05:43] VITALS: BP 168/76
[2018-02-03] MEDS: PANTOPRAZOLE SODIUM 40 MG TABLET.DR PO SCH (06:03)
[2018-02-03] MEDS: HYDROCODONE/APAP 5-325MG TABLET PO PRN ×3 (06:04→20:38)
[2018-02-03] MEDS: BLOOD SUGAR DIAGNOSTIC 1 EACH STRIP VI SCH ×5 (06:32→20:41)
--- NOTE | 2018-02-03 07:46 | NUR ---
SBAR report received, board updated. Pt received resting in bed. Bed in locked and lowest position with side rails up x2. All safety measures implemented. Call light placed within reach, will continue to monitor.
[2018-02-03] MEDS: CHOLECALCIFEROL 1,000 UNIT TABLET PO SCH (08:58)
[2018-02-03] MEDS: GLIMEPIRIDE 2 MG TABLET PO SCH (08:58)
[2018-02-03] MEDS: CYANOCOBALAMIN 1,000 MCG TABLET PO SCH (08:58)
[2018-02-03] MEDS: ASPIRIN EC 81 MG TABLET.DR PO SCH (08:59)
[2018-02-03] MEDS: LISINOPRIL 20 MG TABLET PO SCH ×2 (08:59→16:47)
[2018-02-03] MEDS: GABAPENTIN 300 MG CAPSULE PO SCH ×2 (09:00→16:33)
[2018-02-03] MEDS: CLOPIDOGREL 75 MG TABLET PO SCH (09:00)
[2018-02-03] MEDS: CARVEDILOL 12.5 MG TABLET PO SCH ×2 (09:00→17:17)
[2018-02-03] MEDS: DULOXETINE 30 MG CAPSULE.DR PO SCH (09:00)
[2018-02-03] MEDS: LINAGLIPTIN 5 MG TABLET PO SCH (09:00)
[2018-02-03 09:05] VITALS: BP 176/77
[2018-02-03] MEDS: ONDANSETRON HCL 4 MG TABLET PO PRN (09:08)
--- NOTE | 2018-02-03 18:40 | NUR ---
Pt BP continues to fluctuate with therapy, from 100/45 to 73/39 while sitting in chair. Currently VS stable at 116/58, 75 HR. Pt Initial BS at 1630 of 66 re checked after drinking orange and apple juice remaining 66 BS. made aware. Additional OJ administered and BS milagros to 94. BP medications held this evening. Pt seen by Room Service Attendant for medication adjustment. Pt continues to remain asymptomatic and no acute distress. Pain medication administered once per PRN policy and ice pack applied. Call light and personal items placed within reach. Pt assisted to bathroom, voided, changed, clean and dry, helped into bed. Pt repositioned for comfort. IV midline flushed and patent. Will continue to monitor and endorse to oncoming maintenance technician 3rd shift.
[2018-02-03 19:34] VITALS: BP 100/63
--- NOTE | 2018-02-03 20:12 | NUR ---
resting in bed. aaox4 needs attended. kept comfortable. denies any pain at this time. BP 100/63 HR 73 Resp 18 Temp 98.4 pulse ox 07% RA. Will monitor patient. fall precautions maintained. seen by Dr Reid(paper conservator) earlier. Incontinent of urine x2 Kept clean and dry. o acute distress noted. fall precautions maintained.siderails up for safety.
[2018-02-03] MEDS: ATORVASTATIN 20 MG TABLET PO SCH (20:38)
[2018-02-03] MEDS: ENOXAPARIN SODIUM 30 MG/0.3 ML DISP.SYRIN SUBCUT SCH (20:45)
[2018-02-04 05:35] VITALS: BP 155/76
[2018-02-04] MEDS: PANTOPRAZOLE SODIUM 40 MG TABLET.DR PO SCH (06:12)
[2018-02-04] MEDS: HYDROCODONE/APAP 5-325MG TABLET PO PRN (06:13)
[2018-02-04] MEDS: BLOOD SUGAR DIAGNOSTIC 1 EACH STRIP VI SCH (06:53)
--- NOTE | 2018-02-04 07:16 | NUR ---
accucheck 47 OJ +sugar given recheck BS 88
[2018-02-04 07:46] LABS: HEMOGLOBIN 10.2 g/dL (10.9-14.3); RED BLOOD CELL COUNT(AUTO) 3.65 MIL/uL (3.63-4.92); WHITE BLOOD COUNT (AUTO) 5.3 K/uL (3.8-11.8)
[2018-02-04 07:47] LABS: BASOPHILS % (AUTO) 0.4 % (0.0-2.0); EOSINOPHILS % (AUTO) 0.2 % (0.0-7.0); HEMATOCRIT 32.1 % (31.2-41.9); LYMPHOCYTES % (AUTO) 18.6 % (20.5-51.5); MEAN CORPUSCULAR HGB CONC 32 g/dL (32.3-35.6); MEAN CORPUSCULAR VOLUME 87.8 fL (75.5-95.3); MONOCYTES # (AUTO) 0.5 K/uL (2.0-10.0); MONOCYTES % (AUTO) 10.3 % (0.0-11.0); NEUTROPHILS # (AUTO) 3.8 K/uL (1.8-8.9); NEUTROPHILS % (AUTO) 70.5 % (38.5-71.5); PLATELET COUNT (AUTO) 195 K/uL (179-408)
[2018-02-04 08:07] LABS: ALANINE AMINOTRANSFERASE 186 U/L (14-59); ALKALINE PHOSPHATASE 518 U/L (50-136); ASPARTATE AMINOTRANSFERASE 153 U/L (15-37); BILIRUBIN,TOTAL 0.9 mg/dL (0.2-1.0); CARBON DIOXIDE 29 mmol/L (21-32); CHLORIDE 107 mmol/L (98-107); CREATININE 1.3 mg/dL (0.6-1.3); GLUCOSE 137 mg/dL (74-106); PHOSPHOROUS 3.6 mg/dL (2.5-4.9); POTASSIUM 5.5 mmol/L (3.5-5.1); TOTAL PROTEIN, SERUM 5.8 g/dL (6.4-8.2); UREA NITROGEN, BLOOD 13 mg/dL (7-18)
[2018-02-04] MEDS: LINAGLIPTIN 5 MG TABLET PO SCH (08:50)
[2018-02-04] MEDS: GABAPENTIN 300 MG CAPSULE PO SCH (08:50)
[2018-02-04] MEDS: CYANOCOBALAMIN 1,000 MCG TABLET PO SCH (08:51)
[2018-02-04] MEDS: CHOLECALCIFEROL 1,000 UNIT TABLET PO SCH (08:52)
[2018-02-04] MEDS: DULOXETINE 30 MG CAPSULE.DR PO SCH (08:53)
[2018-02-04] MEDS: CLOPIDOGREL 75 MG TABLET PO SCH (08:53)
[2018-02-04] MEDS: ASPIRIN EC 81 MG TABLET.DR PO SCH (08:53)
[2018-02-04] MEDS ORDERED: LISINOPRIL 20 MG TABLET PO SCH ×2 (09:00)
[2018-02-04] MEDS ORDERED: BISOPROLOL FUMARATE 5 MG TABLET PO SCH (09:00)
--- NOTE | 2018-02-04 09:10 | NUR ---
Received patient awake, alert and oriented x4. Kenyan speaking. left arm IV site intact, no signs of infiltration. lactic acid critical values result of 3 noted. MD Herbert notified and ordered transfer to telemetry for further observation. telemetry charge nurse and in housekeeping aide aware. Daughter Brook made aware. morning medicine given except BP pills. tolerated well. Latest BP 100/52 Pulse OXY: 94% . not in distress. will continue monitor
[2018-02-04] MEDS ORDERED: SWABABLE VALVE TRANSFER SET EA MC ONE (10:33)
[2018-02-04] MEDS ORDERED: IV NORMAL SALINE 250 ML IV ONE (10:33)
[2018-02-04] MEDS ORDERED: IOHEXOL 300MG/ML 100 ML INFUS..BTL ONE (10:33)
[2018-02-04 11:55] VITALS: BP 100/52
--- NOTE | 2018-02-04 12:07 | NUR ---
Patient went to radiologist for CAT scan on abdomen and pelvis with contrast. Consent signed by the patient. Report given to activities manager Norma, Patient will go directly after CAT scan to telemetry. not in distress.
--- NOTE | 2018-02-04 12:29 | NUR ---
Patient discharge to telemtry around 1215pm . not in distress.
[2018-02-04] MEDS ORDERED: ONDA4TAB5 PO (13:20)
[2018-02-04] MEDS ORDERED: ONDA4TAB8 IV (13:20)
[2018-02-04] MEDS ORDERED: CHOL200010 PO (13:20)
[2018-02-04] MEDS ORDERED: INSU100V28 SQ (13:20)
[2018-02-04] MEDS ORDERED: ZOLP5TAB8 PO (13:20)
[2018-02-04] MEDS ORDERED: LISI-603 PO (13:20)
[2018-02-04] MEDS ORDERED: BISA-79 PO (13:20)
[2018-02-04] MEDS ORDERED: BISO5TAB2 PO (13:20)
[2018-02-04] MEDS ORDERED: LINA5TAB PO (13:20)
[2018-02-04] MEDS ORDERED: HYDR-3974 PO (13:20)
[2018-02-04] MEDS ORDERED: ENOX40DI SQ (13:20)
[2018-02-04] MEDS ORDERED: BLOO-668 IN (13:20)
[2018-02-04] MEDS ORDERED: ATOR20TA PO (13:20)
[2018-02-04] MEDS ORDERED: PANT40TA4 PO (13:20)
[2018-02-04] MEDS ORDERED: DEXT50DI8 IV (13:20)
[2018-02-04] MEDS ORDERED: HYDR-4076 PO (13:20)
[2018-02-04] MEDS ORDERED: CYAN10009 PO (13:20)
[2018-02-07] MEDS ORDERED: DOCU-141 PO (12:14)
[2018-02-07] MEDS ORDERED: BRIM10DR6 LEFTEYE (12:14)
[2018-02-07] MEDS ORDERED: ACID1TAB4 PO (12:14)
[2018-02-07] MEDS ORDERED: DORZ10DR13 LEFTEYE (12:14)
[2018-02-07] MEDS ORDERED: ALBU2.5V7 NEB (12:14)
[2018-02-07] MEDS ORDERED: SULF1TAB3 PO (12:14)
[2018-02-07] MEDS ORDERED: CRAN450T9 PO (12:14)
[2018-02-07] MEDS ORDERED: LISI10TA5 PO (12:14)
[2018-02-07] MEDS ORDERED: FERR325T28 PO (12:14)
[2018-02-07] MEDS ORDERED: ATOR10TA PO (12:14)
[2018-02-07] MEDS ORDERED: HYDR25TA86 PO (12:14)
[2018-02-07] MEDS ORDERED: PROT30LI PO (12:14)
[2018-02-07] MEDS ORDERED: POLY15DR27 EACHEYE (12:14)
[2018-02-07] MEDS ORDERED: HYDR-3326 PO (12:14)
[2018-02-07] MEDS ORDERED: ACET325T53 PO (12:14)
[2018-02-07] MEDS ORDERED: ALLO100T PO (12:14)
[2018-02-07] MEDS ORDERED: ZOLP5TAB8 PO (12:14)
[2018-02-07] MEDS ORDERED: LATA2.5D2 EACHEYE (12:14)
[2018-02-07] MEDS ORDERED: MULT1TAB73 PO (12:14)
== END 2018-02-04 12:15 | disposition short-term general hospital (02) | DRG 862 ==
PROVIDERS: ADMIT Physical Medicine & Rehabilitation Pain Medicine; ATTEND Physical Medicine & Rehabilitation Pain Medicine
DX: Z47.1 Aftercare following joint replacement surgery (principal); N17.0 Acute kidney failure with tubular necrosis; E43 Unspecified severe protein-calorie malnutrition; I95.9 Hypotension, unspecified; D68.59 Other primary thrombophilia; I11.0 Hypertensive heart disease with heart failure; E11.649 Type 2 diabetes mellitus with hypoglycemia without coma; I50.32 Chronic diastolic (congestive) heart failure; I50.30 Unspecified diastolic (congestive) heart failure; Z96.641 Presence of right artificial hip joint; N39.0 Urinary tract infection, site not specified; G62.9 Polyneuropathy, unspecified; I05.9 Rheumatic mitral valve disease, unspecified; K85.90 Acute pancreatitis without necrosis or infection, unspecified; R41.82 Altered mental status, unspecified; I25.10 Atherosclerotic heart disease of native coronary artery without angina pectoris; Z96.41 Presence of insulin pump (external) (internal); R26.9 Unspecified abnormalities of gait and mobility; E55.9 Vitamin D deficiency, unspecified; E78.5 Hyperlipidemia, unspecified; F32.9 Major depressive disorder, single episode, unspecified; F41.9 Anxiety disorder, unspecified; M10.9 Gout, unspecified; Z88.5 Allergy status to narcotic agent; Z91.81 History of falling; E53.8 Deficiency of other specified B group vitamins
CPT/HCPCS: 36415; 36569; 70030-TC; 71045; 73502; 76705; 82306; 83605; 83690; 83735; 84100; 84443; 85025; 92526; 92610; 93005; 97110; 97112; 97116; 97530; 97535; A4663; C1758; J1650; J1815; J7030; J7050; Q0162; Q9967

== ENCOUNTER 2018-02-04 12:31 | Inpatient (IN) | payer MEDICAID, MEDICARE ==
[~2018-02-04] VITALS: Ht 160 cm; Wt 77.1 kg
[2018-02-04 12:00] VITALS: BP 98/62
--- NOTE | 2018-02-04 12:00 | NUR ---
Received pt via wheelchair from [facility]. No apparent s/s of SOB, pain, distress or discomfort.
--- NOTE | 2018-02-04 12:30 | NUR ---
aware of patient's arrival to the med-surg/tele floor.
[~2018-02-04 12:31] MED LIST: ALLO300T2 PO; AMLO5TAB2 PO; ASPI-605 PO; BRIM5DRO3 OP; CARV25TA2 PO; CLON0.1T PO; CLON1TAB5 PO; CLOP75TA15 PO; DORZ10DR10 OP; DULO30CA2 PO; ESOM40CA PO; GABA-534 PO; GLIM1TAB3 PO; OLME40TA12 PO; ROSU40TA PO; SITA100T PO; TRAV5DRO EACHEYE
[2018-02-04] MEDS ORDERED: DEXT50DI8 IV (13:20)
[2018-02-04] MEDS ORDERED: CYAN10009 PO (13:20)
[2018-02-04] MEDS ORDERED: ONDA4TAB5 PO (13:20)
[2018-02-04] MEDS ORDERED: PANT40TA4 PO (13:20)
[2018-02-04] MEDS ORDERED: ATOR20TA PO (13:20)
[2018-02-04] MEDS ORDERED: BISA-79 PO (13:20)
[2018-02-04] MEDS ORDERED: INSU100V28 SQ (13:20)
[2018-02-04] MEDS ORDERED: LINA5TAB PO (13:20)
[2018-02-04] MEDS ORDERED: CHOL200010 PO (13:20)
[2018-02-04] MEDS ORDERED: ENOX40DI SQ (13:20)
[2018-02-04] MEDS ORDERED: LISI-603 PO (13:20)
[2018-02-04] MEDS ORDERED: BLOO-668 IN (13:20)
[2018-02-04] MEDS ORDERED: ZOLP5TAB8 PO (13:20)
[2018-02-04] MEDS ORDERED: HYDR-4076 PO (13:20)
[2018-02-04] MEDS ORDERED: HYDR-3974 PO (13:20)
[2018-02-04] MEDS ORDERED: BISO5TAB2 PO (13:20)
[2018-02-04] MEDS ORDERED: ONDA4TAB8 IV (13:20)
--- NOTE | 2018-02-04 15:00 | NUR ---
Second med con done with pharmacist. Dr blakely
[2018-02-04 15:59] VITALS: BP_SYST 109; BP_SYST 98; BP_DIAS 51; BP_DIAS 61
[2018-02-04] MEDS: HYDROCODONE/APAP 5-325MG TABLET PO PRN (17:48)
--- NOTE | 2018-02-04 18:30 | NUR ---
Provide the pt with a wheelchair, walker and commode
--- NOTE | 2018-02-04 18:45 | NUR ---
Per malathi Sahu to [place] tele
--- NOTE | 2018-02-04 19:10 | NUR ---
RECEIVED PT ON WHEELCHAIR, AAOX4. BAHRAINI SPEAKING, NO SOB, DENIES ANY CHEST PAIN. MIDLINE ON LFA, PATENT AND INTACT. SAFETY MEASURE INITIATED, CALL MOLINA WITHIN REACH.
[2018-02-04 20:00] VITALS: BP 122/61
[2018-02-04 20:07] LABS: AMYLASE 60 U/L (25-115); LIPASE 355 U/L (73-393)
[2018-02-04] MEDS ORDERED: DEXTROSE 50% 50 ML DISP.SYRIN IV PRN (20:45)
[2018-02-04] MEDS ORDERED: ONDANSETRON 4 MG/2 ML VIAL IV PRN (20:45)
[2018-02-04] MEDS ORDERED: ALBUTEROL SULFATE 2.5 MG/3 ML NEBU NEB PRN (20:45)
[2018-02-04] MEDS ORDERED: BISACODYL 5 MG TABLET.DR PO PRN (20:45)
[2018-02-04] MEDS ORDERED: hydrALAZINE HCL 25 MG TABLET PO PRN (20:45)
[2018-02-04] MEDS ORDERED: ACETAMINOPHEN 325 MG TABLET PO PRN (20:45)
[2018-02-04] MEDS ORDERED: ALLOPURINOL 300 MG TABLET PO PRN (20:45)
[2018-02-04] MEDS ORDERED: INSULIN REGULAR, HUMAN 300 UNIT/3 ML VIAL SQ PRN (20:45)
[2018-02-04] MEDS ORDERED: CLONAZEPAM 1 MG TABLET PO PRN (20:45)
[2018-02-04] MEDS: BLOOD SUGAR DIAGNOSTIC 1 EACH STRIP VI SCH (21:25)
[2018-02-04] MEDS: ENOXAPARIN SODIUM 40 MG/0.4 ML DISP.SYRIN SQ SCH (21:35)
[2018-02-04] MEDS: ATORVASTATIN 20 MG TABLET PO SCH (21:35)
[2018-02-04] MEDS ORDERED: CEFTRIAXONE 1 G VIAL ONE (21:39)
[2018-02-04 22:38] LABS: *BILIRUBIN,URIN NEGATIVE (NEGATIVE); *BLOOD, URINE 1+ (NEGATIVE); *CLARITY,URINE SLIGHTLY CLOUDY (CLEAR); *COLOR,URINE YELLOW (YELLOW); *KETONES,URINE NEGATIVE (NEGATIVE); *PROTEIN,URINE 2+ (NEGATIVE); LEUKOCYTE ESTERASE ,URINE 1+ (NEGATIVE); NITRITE, URINE POSITIVE (NEGATIVE); PH,URINE 8.5 (5.0-8.0); UGLUCOSE NEGATIVE (NEGATIVE)
[2018-02-04 22:45] LABS: BACTERIA,URINE MANY /HPF (NONE SEEN); MUCUS,URINE FEW /LPF (0-FEW); SQUAMOUS EPITHELIAL CELL,UR FEW /HPF (NONE SEEN); WBC,URINE 50-80 /HPF (0-3)
[2018-02-04] MEDS: CEFTRIAXONE 1 G in IV DEXTROSE 5% 50 ML IV SCH (23:01)
[2018-02-05] MEDS: HYDROCODONE/APAP 5-325MG TABLET PO PRN ×3 (00:12→18:52)
[2018-02-05] MEDS: ZOLPIDEM 5 MG TABLET PO PRN ×2 (01:42→21:21)
[2018-02-05 05:12] VITALS: BP 153/75
[2018-02-05 06:26] LABS: BASOPHILS % (AUTO) 0.5 % (0.0-2.0); EOSINOPHILS % (AUTO) 0.2 % (0.0-7.0); HEMOGLOBIN 10.6 g/dL (10.9-14.3); LYMPHOCYTES # (AUTO) 1.3 K/uL (20.0-40.0); LYMPHOCYTES % (AUTO) 22.2 % (20.5-51.5); MEAN CORPUSCULAR HEMOGLOBIN 28.1 uug (24.7-32.8); MEAN CORPUSCULAR HGB CONC 32 g/dL (32.3-35.6); MEAN CORPUSCULAR VOLUME 87.5 fL (75.5-95.3); MONOCYTES # (AUTO) 0.6 K/uL (2.0-10.0); MONOCYTES % (AUTO) 10.2 % (0.0-11.0); NEUTROPHILS # (AUTO) 3.9 K/uL (1.8-8.9); NEUTROPHILS % (AUTO) 66.9 % (38.5-71.5); PLATELET COUNT (AUTO) 243 K/uL (179-408); RED BLOOD CELL COUNT(AUTO) 3.78 MIL/uL (3.63-4.92); WHITE BLOOD COUNT (AUTO) 5.8 K/uL (3.8-11.8)
[2018-02-05] MEDS: BLOOD SUGAR DIAGNOSTIC 1 EACH STRIP VI SCH ×4 (06:28→21:10)
[2018-02-05 06:41] LABS: IRON, SERUM 29 ug/dL (50-175)
--- NOTE | 2018-02-05 06:45 | NUR ---
PT RESTING COMFORTABLY IN BED, NO SIGNS OF RESPIRATORY DISTRESS NOTED. MIDLINE ON LFA, PATENT AND INTACT. ALL NEEDS MET AND ATTENDED. SAFE ENVIRONMENT MAINTAINED AT ALL TIMES, CALL MOLINA WITHIN REACH.
--- NOTE | 2018-02-05 07:30 | NUR ---
Sleeping, appears comfortable. Bed alarm on
[2018-02-05 07:47] LABS: ALANINE AMINOTRANSFERASE 159 U/L (14-59); ALKALINE PHOSPHATASE 482 U/L (50-136); ASPARTATE AMINOTRANSFERASE 99 U/L (15-37); BILIRUBIN,TOTAL 0.7 mg/dL (0.2-1.0); CARBON DIOXIDE 28 mmol/L (21-32); CHLORIDE 104 mmol/L (98-107); CREATININE 1.1 mg/dL (0.6-1.3); GLUCOSE 88 mg/dL (74-106); LIPASE 234 U/L (73-393); MAGNESIUM 2.1 mg/dL (1.8-2.4); PHOSPHOROUS 3.8 mg/dL (2.5-4.9); POTASSIUM 4.5 mmol/L (3.5-5.1); TOTAL PROTEIN, SERUM 6.2 g/dL (6.4-8.2); UREA NITROGEN, BLOOD 14 mg/dL (7-18)
[2018-02-05] MEDS: DULOXETINE 30 MG CAPSULE.DR PO SCH (09:37)
[2018-02-05] MEDS: CHOLECALCIFEROL 1,000 UNIT TABLET PO SCH (09:38)
[2018-02-05] MEDS: LINAGLIPTIN 5 MG TABLET PO SCH (09:38)
[2018-02-05] MEDS: CLOPIDOGREL 75 MG TABLET PO SCH (09:38)
[2018-02-05] MEDS: GABAPENTIN 300 MG CAPSULE PO SCH ×2 (09:38→17:16)
[2018-02-05] MEDS: CYANOCOBALAMIN 1,000 MCG TABLET PO SCH (09:38)
[2018-02-05] MEDS: LISINOPRIL 20 MG TABLET PO SCH (09:38)
[2018-02-05] MEDS: BISOPROLOL FUMARATE 5 MG TABLET PO SCH (09:39)
[2018-02-05] MEDS: PANTOPRAZOLE SODIUM 40 MG TABLET.DR PO SCH (09:42)
[2018-02-05] MEDS: ASPIRIN EC 81 MG TABLET.DR PO SCH (09:43)
--- NOTE | 2018-02-05 10:00 | NUR ---
PT eval initiated. Assisted out of bed, ambulating with FWW, WBAT then sitting on the chair
[2018-02-05 11:31] VITALS: BP 106/55
--- NOTE | 2018-02-05 14:00 | NUR ---
OT eval done, then sitting on the chair.
[2018-02-05 15:42] VITALS: BP 103/52
[2018-02-05] MEDS ORDERED: POLYVINYL ALCOHOL OPHT DROPS 15 ML BOTTLE EACHEYE PRN (17:30)
[2018-02-05] MEDS ORDERED: BRIMONIDINE-P 0.1% OPHTH DROP 5 ML DROPS LEFTEYE SCH (17:30)
--- NOTE | 2018-02-05 18:35 | NUR ---
Eye drops for glaucoma clarified with orders. Discussed with patient and daughter
[2018-02-05] MEDS: BRIMONIDINE 0.2% OPHT DROP 10 ML BOTTLE LEFTEYE SCH (18:38)
[2018-02-05 20:00] VITALS: BP 128/53
--- NOTE | 2018-02-05 20:00 | NUR ---
RECEIVED PATIENT AWAKE, SITTING IN W/C IN BEDSIDE. PATIENT IS A/O X4. NIGERIAN SPEAKING BUT ABLE TO MAKE NEEDS KNOWN AND VERBALIZES UNDERSTANDING. VSS. MID-LINE INTACT AND NOTED TO LEFT UPPER ARM. CALL LIGHT IN REACH. ALL NEEDS ATTENDED. WILL CONTINUE TO MONITOR AND ASSESS.
[2018-02-05] MEDS ORDERED: TRAVOPROST 0.004% OPHT DROP 2.5 ML BOTTLE EACHEYE SCH (21:00)
[2018-02-05] MEDS: CEFTRIAXONE 1 G in IV DEXTROSE 5% 50 ML IV SCH (21:04)
[2018-02-05] MEDS: ENOXAPARIN SODIUM 40 MG/0.4 ML DISP.SYRIN SQ SCH (21:10)
[2018-02-05] MEDS: ATORVASTATIN 20 MG TABLET PO SCH (21:10)
[2018-02-05] MEDS: LATANOPROST OPHT DROP 2.5 ML BOTTLE EACHEYE SCH (21:11)
[2018-02-05] MEDS: DORZOLAMIDE/TIMOLOL OPHT DROP 10 ML BOTTLE LEFTEYE SCH (21:11)
--- NOTE | 2018-02-06 00:30 | NUR ---
REPORT GIVEN TO RN.
--- NOTE | 2018-02-06 01:09 | NUR ---
Received pt sleeping comfortably in bed. No acute distress noted. Pt has left upper arm midline, intact. Safety measures maintained. Call light and personal belongings within reach. Will continue to monitor.
[2018-02-06 04:38] VITALS: BP 159/77
[2018-02-06] MEDS: PANTOPRAZOLE SODIUM 40 MG TABLET.DR PO SCH (06:31)
[2018-02-06] MEDS: BLOOD SUGAR DIAGNOSTIC 1 EACH STRIP VI SCH ×4 (06:31→20:22)
--- NOTE | 2018-02-06 06:33 | NUR ---
Pt slept comfortably t/o the night. All needs attended to promptly. Accucheck this morning 118. Will continue to monitor.
[2018-02-06 07:00] LABS: ALANINE AMINOTRANSFERASE 126 U/L (14-59); ALKALINE PHOSPHATASE 444 U/L (50-136); ASPARTATE AMINOTRANSFERASE 66 U/L (15-37); BILIRUBIN,TOTAL 0.5 mg/dL (0.2-1.0); CARBON DIOXIDE 29 mmol/L (21-32); CHLORIDE 105 mmol/L (98-107); CREATININE 1.1 mg/dL (0.6-1.3); GLUCOSE 106 mg/dL (74-106); MAGNESIUM 2.1 mg/dL (1.8-2.4); PHOSPHOROUS 4.3 mg/dL (2.5-4.9); POTASSIUM 4.3 mmol/L (3.5-5.1); TOTAL PROTEIN, SERUM 6.2 g/dL (6.4-8.2); UREA NITROGEN, BLOOD 14 mg/dL (7-18)
[2018-02-06 07:07] LABS: BASOPHILS % (AUTO) 0.5 % (0.0-2.0); EOSINOPHILS % (AUTO) 0.3 % (0.0-7.0); HEMATOCRIT 33.4 % (31.2-41.9); HEMOGLOBIN 10.8 g/dL (10.9-14.3); LYMPHOCYTES # (AUTO) 1.5 K/uL (20.0-40.0); LYMPHOCYTES % (AUTO) 27.6 % (20.5-51.5); MEAN CORPUSCULAR HEMOGLOBIN 28.4 uug (24.7-32.8); MEAN CORPUSCULAR HGB CONC 32 g/dL (32.3-35.6); MEAN CORPUSCULAR VOLUME 87.7 fL (75.5-95.3); MONOCYTES # (AUTO) 0.7 K/uL (2.0-10.0); MONOCYTES % (AUTO) 13.2 % (0.0-11.0); NEUTROPHILS # (AUTO) 3.1 K/uL (1.8-8.9); NEUTROPHILS % (AUTO) 58.4 % (38.5-71.5); PLATELET COUNT (AUTO) 254 K/uL (179-408); RED BLOOD CELL COUNT(AUTO) 3.81 MIL/uL (3.63-4.92); WHITE BLOOD COUNT (AUTO) 5.3 K/uL (3.8-11.8)
--- NOTE | 2018-02-06 07:10 | NUR ---
RECEIVED PATIENT ON BED ASLEEP. AAOX3 NO ACUTE DISTRESS NOTED. ESTONIAN SPEAKING BUT ABLE TO MAKE NEEDS KNOWN. MIDLINE ON THE LEFT UPPER ARM, INTACT AND PATENT. BLOOD GLUCOSE THIS AM 118 NO INSULIN COVERAGE NEEDED. NO COMPLAINTS OF PAIN AND DISCOMFORT AT THIS TIME. CALL LIGHT WITHIN REACH WILL CONTINUE TO MONITOR CLOSELY.
[2018-02-06] MEDS: DULOXETINE 30 MG CAPSULE.DR PO SCH (08:33)
[2018-02-06] MEDS: LINAGLIPTIN 5 MG TABLET PO SCH (08:34)
[2018-02-06] MEDS: CHOLECALCIFEROL 1,000 UNIT TABLET PO SCH (08:34)
[2018-02-06] MEDS: CLOPIDOGREL 75 MG TABLET PO SCH (08:34)
[2018-02-06] MEDS: ASPIRIN EC 81 MG TABLET.DR PO SCH (08:34)
[2018-02-06] MEDS: GABAPENTIN 300 MG CAPSULE PO SCH ×2 (08:34→16:32)
[2018-02-06] MEDS: LISINOPRIL 20 MG TABLET PO SCH (08:34)
[2018-02-06] MEDS: CYANOCOBALAMIN 1,000 MCG TABLET PO SCH (08:34)
[2018-02-06] MEDS: DORZOLAMIDE/TIMOLOL OPHT DROP 10 ML BOTTLE LEFTEYE SCH ×2 (08:35→20:22)
[2018-02-06] MEDS: BRIMONIDINE 0.2% OPHT DROP 10 ML BOTTLE LEFTEYE SCH (08:35)
[2018-02-06] MEDS: BISOPROLOL FUMARATE 5 MG TABLET PO SCH (08:39)
[2018-02-06] MEDS: HYDROCODONE/APAP 5-325MG TABLET PO PRN ×3 (08:48→20:22)
[2018-02-06 11:28] VITALS: BP 110/53
[2018-02-06 15:14] VITALS: BP 115/50
[2018-02-06 19:00] VITALS: BP 142/63
--- NOTE | 2018-02-06 20:00 | NUR ---
RECEIVED PATIENT AWAKE, SITTING IN W/C IN BEDSIDE. PATIENT IS A/O X4. GRENADIAN SPEAKING BUT ABLE TO MAKE NEEDS KNOWN AND VERBALIZES UNDERSTANDING. VSS. MID-LINE INTACT AND NOTED TO LEFT UPPER ARM. CALL LIGHT IN REACH. ALL NEEDS ATTENDED. WILL CONTINUE TO MONITOR AND ASSESS.
[2018-02-06] MEDS: ENOXAPARIN SODIUM 40 MG/0.4 ML DISP.SYRIN SQ SCH (20:21)
[2018-02-06] MEDS: LATANOPROST OPHT DROP 2.5 ML BOTTLE EACHEYE SCH (20:22)
[2018-02-06] MEDS: ATORVASTATIN 20 MG TABLET PO SCH (20:22)
[2018-02-06] MEDS: CEFTRIAXONE 1 G in IV DEXTROSE 5% 50 ML IV SCH (20:49)
[2018-02-06] MEDS ORDERED: ENOXAPARIN SODIUM 30 MG/0.3 ML DISP.SYRIN SQ SCH (21:00)
[2018-02-06] MEDS: ZOLPIDEM 5 MG TABLET PO PRN (21:56)
[2018-02-07 04:00] VITALS: BP 132/53
[2018-02-07] MEDS: PANTOPRAZOLE SODIUM 40 MG TABLET.DR PO SCH (06:25)
--- NOTE | 2018-02-07 06:30 | NUR ---
PATIENT AWAKE IN BED. SLEPT WELL THROUGHOUT THE NIGHT. DENIES PAIN OR DISCOMFORT. NO RESP. DISTRESS NOTED. BED ALARM ON. CALL LIGHT IN REACH. ALL NEEDS ATTENDED. WILL CONTINUE TO MONITOR.
[2018-02-07] MEDS: BLOOD SUGAR DIAGNOSTIC 1 EACH STRIP VI SCH ×3 (06:33→16:52)
--- NOTE | 2018-02-07 07:00 | NUR ---
RECEIVED PATIENT ON BED ASLEEP. AAOX3 NO ACUTE DISTRESS NOTED. TURKS AND [place] SPEAKING BUT ABLE TO MAKE NEEDS KNOWN. MIDLINE ON THE LEFT UPPER ARM, INTACT AND PATENT. BLOOD GLUCOSE WNL NO INSULIN COVERAGE NEEDED. NO COMPLAINTS OF PAIN AND DISCOMFORT AT THIS TIME. CALL LIGHT WITHIN REACH WILL CONTINUE TO MONITOR CLOSELY.
[2018-02-07] MEDS: BRIMONIDINE 0.2% OPHT DROP 10 ML BOTTLE LEFTEYE SCH (08:16)
[2018-02-07] MEDS: HYDROCODONE/APAP 5-325MG TABLET PO PRN ×2 (08:16→16:43)
[2018-02-07] MEDS: DORZOLAMIDE/TIMOLOL OPHT DROP 10 ML BOTTLE LEFTEYE SCH (08:17)
[2018-02-07] MEDS: CHOLECALCIFEROL 1,000 UNIT TABLET PO SCH (08:17)
[2018-02-07] MEDS: BISOPROLOL FUMARATE 5 MG TABLET PO SCH (08:17)
[2018-02-07] MEDS: CLOPIDOGREL 75 MG TABLET PO SCH (08:18)
[2018-02-07] MEDS: LINAGLIPTIN 5 MG TABLET PO SCH (08:18)
[2018-02-07] MEDS: ASPIRIN EC 81 MG TABLET.DR PO SCH (08:18)
[2018-02-07] MEDS: DULOXETINE 30 MG CAPSULE.DR PO SCH (08:18)
[2018-02-07] MEDS: CYANOCOBALAMIN 1,000 MCG TABLET PO SCH (08:18)
[2018-02-07] MEDS: LISINOPRIL 20 MG TABLET PO SCH (08:18)
[2018-02-07] MEDS: GABAPENTIN 300 MG CAPSULE PO SCH ×2 (08:18→16:43)
[2018-02-07] MEDS ORDERED: SULFAMETH/TRIMETH 800/160 MG TABLET PO SCH (10:45)
[2018-02-07 11:39] VITALS: BP 113/80
[2018-02-07] MEDS ORDERED: FERROUS SULFATE 325 MG TABEC PO SCH (11:45)
[2018-02-07] MEDS ORDERED: FUROSEMIDE 20 MG/2 ML VIAL IV ONE (12:00)
[2018-02-07] MEDS ORDERED: PROTEIN SUPPLEMENT (PROSTAT) 30 ML LIQUID PO SCH (12:00)
[2018-02-07] MEDS ORDERED: ATOR10TA PO (12:14)
[2018-02-07] MEDS ORDERED: DOCU-141 PO (12:14)
[2018-02-07] MEDS ORDERED: ACID1TAB4 PO (12:14)
[2018-02-07] MEDS ORDERED: LATA2.5D2 EACHEYE (12:14)
[2018-02-07] MEDS ORDERED: MULT1TAB73 PO (12:14)
[2018-02-07] MEDS ORDERED: SULF1TAB3 PO (12:14)
[2018-02-07] MEDS ORDERED: ALBU2.5V7 NEB (12:14)
[2018-02-07] MEDS ORDERED: HYDR25TA86 PO (12:14)
[2018-02-07] MEDS ORDERED: ALLO100T PO (12:14)
[2018-02-07] MEDS ORDERED: BRIM10DR6 LEFTEYE (12:14)
[2018-02-07] MEDS ORDERED: ZOLP5TAB8 PO (12:14)
[2018-02-07] MEDS ORDERED: HYDR-3326 PO (12:14)
[2018-02-07] MEDS ORDERED: CRAN450T9 PO (12:14)
[2018-02-07] MEDS ORDERED: PROT30LI PO (12:14)
[2018-02-07] MEDS ORDERED: LISI10TA5 PO (12:14)
[2018-02-07] MEDS ORDERED: FERR325T28 PO (12:14)
[2018-02-07] MEDS ORDERED: ACET325T53 PO (12:14)
[2018-02-07] MEDS ORDERED: POLY15DR27 EACHEYE (12:14)
[2018-02-07] MEDS ORDERED: DORZ10DR13 LEFTEYE (12:14)
[2018-02-07 15:50] VITALS: BP 106/48
--- NOTE | 2018-02-07 17:08 | NUR ---
PATIENT DISCHARGED TO [facility] IN STABLE CONDITION. REPORT GIVEN PRIOR TO [facility] GIVEN AND EXPLAINED TO PATIENT. MIDLINE REMOVED, WELL TOLERATED. ID BAND REMOVED AND DISPOSED PROPERLY. LEFT HOSPITAL VIA AMBULANCE ACCOMPANIED BY 2 LINE RIDER.
== END 2018-02-07 17:00 | DRG 720 ==
LOC: TELE 12:31 → MED 20:11
PROVIDERS: ADMIT Internal Medicine; ATTEND Internal Medicine
DX: A41.59 Other Gram-negative sepsis (principal); E43 Unspecified severe protein-calorie malnutrition; E87.2 Acidosis; E11.42 Type 2 diabetes mellitus with diabetic polyneuropathy; D68.59 Other primary thrombophilia; N39.0 Urinary tract infection, site not specified; I11.0 Hypertensive heart disease with heart failure; I50.32 Chronic diastolic (congestive) heart failure; I05.2 Rheumatic mitral stenosis with insufficiency; K85.90 Acute pancreatitis without necrosis or infection, unspecified; S72.001D Fracture of unspecified part of neck of right femur, subsequent encounter for closed fracture with routine healing; W19.XXXD Unspecified fall, subsequent encounter; Z68.30 Body mass index [BMI] 30.0-30.9, adult; E66.8 Other obesity; Z71.3 Dietary counseling and surveillance; E78.5 Hyperlipidemia, unspecified; M10.9 Gout, unspecified; Z79.02 Long term (current) use of antithrombotics/antiplatelets; D25.9 Leiomyoma of uterus, unspecified; N28.1 Cyst of kidney, acquired; D50.9 Iron deficiency anemia, unspecified; E55.9 Vitamin D deficiency, unspecified; Z96.641 Presence of right artificial hip joint; F41.9 Anxiety disorder, unspecified; F32.0 Major depressive disorder, single episode, mild; H40.9 Unspecified glaucoma; I25.10 Atherosclerotic heart disease of native coronary artery without angina pectoris; R74.0 Nonspecific elevation of levels of transaminase and lactic acid dehydrogenase [LDH]; T46.6X5A Adverse effect of antihyperlipidemic and antiarteriosclerotic drugs, initial encounter; Y92.009 Unspecified place in unspecified non-institutional (private) residence as the place of occurrence of the external cause
CPT/HCPCS: 36415; 70030-TC; 83550; 83605; 83690; 83735; 84100; 85025; 87077; 87086; 92523; 92610; 93005; 93307; 97110; 97116; 97165; 97530; J0696; J1650; J1815; J1940; J7050; J7060

== ENCOUNTER 2018-03-09 17:10 | Inpatient (IN) | payer MEDICAID, MEDICARE ==
[~2018-03-09] VITALS: Ht 157.5 cm; Wt 72.7 kg
[~2018-03-09 17:10] MED LIST changes: +ACET325T53 PO; +ACID1TAB4 PO; +ALBU2.5V7 NEB; +ALLO100T PO; -ALLO300T2 PO; -AMLO5TAB2 PO; +ATOR10TA PO; +BISA-79 PO; +BISO5TAB2 PO; +BRIM10DR6 LEFTEYE; -BRIM5DRO3 OP; -CARV25TA2 PO; +CHOL200010 PO; -CLON0.1T PO; +CRAN450T9 PO; +CYAN10009 PO; +DOCU-141 PO; -DORZ10DR10 OP; +DORZ10DR13 LEFTEYE; -ESOM40CA PO; +FERR325T28 PO; -GLIM1TAB3 PO; +HYDR-3326 PO; +HYDR25TA86 PO; +LATA2.5D2 EACHEYE; +LINA5TAB PO; +LISI10TA5 PO; +MULT1TAB73 PO; -OLME40TA12 PO; +PANT40TA4 PO; +POLY15DR27 EACHEYE; +PROT30LI PO; -ROSU40TA PO; -SITA100T PO; +SULF1TAB3 PO; -TRAV5DRO EACHEYE; +ZOLP5TAB8 PO
[2018-03-09 17:58] LABS: BASOPHILS # (AUTO) 0.1 K/uL (0.0-8.0); BASOPHILS % (AUTO) 0.6 % (0.0-2.0); EOSINOPHILS # (AUTO) 0.1 K/uL (0.0-0.7); EOSINOPHILS % (AUTO) 0.4 % (0.0-7.0); HEMATOCRIT 38.9 % (31.2-41.9); HEMOGLOBIN 12.3 g/dL (10.9-14.3); LYMPHOCYTES # (AUTO) 1.8 K/uL (20.0-40.0); LYMPHOCYTES % (AUTO) 11.8 % (20.5-51.5); MEAN CORPUSCULAR HEMOGLOBIN 29.2 uug (24.7-32.8); MEAN CORPUSCULAR HGB CONC 32 g/dL (32.3-35.6); MEAN CORPUSCULAR VOLUME 92.1 fL (75.5-95.3); MONOCYTES # (AUTO) 0.7 K/uL (2.0-10.0); MONOCYTES % (AUTO) 4.5 % (0.0-11.0); NEUTROPHILS # (AUTO) 12.9 K/uL (1.8-8.9); NEUTROPHILS % (AUTO) 82.7 % (38.5-71.5); PLATELET COUNT (AUTO) 194 K/uL (179-408); RED BLOOD CELL COUNT(AUTO) 4.22 MIL/uL (3.63-4.92); WHITE BLOOD COUNT (AUTO) 15.6 K/uL (3.8-11.8)
[2018-03-09 18:16] LABS: CARBON DIOXIDE 22 mmol/L (21-32); CHLORIDE 108 mmol/L (98-107); CREATININE 1.4 mg/dL (0.6-1.3); GLUCOSE 117 mg/dL (74-106); POTASSIUM 4.3 mmol/L (3.5-5.1); UREA NITROGEN, BLOOD 20 mg/dL (7-18)
[2018-03-09 18:36] LABS: ALANINE AMINOTRANSFERASE 21 U/L (14-59); ALKALINE PHOSPHATASE 160 U/L (50-136); ASPARTATE AMINOTRANSFERASE 27 U/L (15-37); BILIRUBIN,DIRECT 0.3 mg/dL (0.0-0.2); BILIRUBIN,TOTAL 0.8 mg/dL (0.2-1.0); TOTAL PROTEIN, SERUM 6.7 g/dL (6.4-8.2)
[2018-03-09] MEDS ORDERED: LISI10TA5 PO (21:18)
[2018-03-09] MEDS ORDERED: ALLO100T PO (21:18)
[2018-03-09] MEDS ORDERED: NUT.237L70 PO (21:18)
[2018-03-09] MEDS ORDERED: HYDR-4076 PO (21:18)
[2018-03-09] MEDS ORDERED: AMIN30LI27 PO (21:18)
[2018-03-09] MEDS ORDERED: ASCO500C18 PO (21:18)
--- NOTE | 2018-03-09 21:18 | NUR ---
Paged CareParent for panel call.
[2018-03-09 21:28] LABS: *BILIRUBIN,URIN NEGATIVE (NEGATIVE); *BLOOD, URINE Trace-intact (NEGATIVE); *COLOR,URINE YELLOW (YELLOW); *KETONES,URINE TRACE (NEGATIVE); *PROTEIN,URINE NEGATIVE (NEGATIVE); *UROBILINOGEN,URINE 0.2 E.U./dl (NORMAL); LEUKOCYTE ESTERASE ,URINE 2+ (NEGATIVE); NITRITE, URINE NEGATIVE (NEGATIVE); PH,URINE 5.5 (5.0-8.0); UGLUCOSE NEGATIVE (NEGATIVE)
[2018-03-09 21:29] LABS: *CLARITY,URINE SLIGHTLY CLOUDY (CLEAR)
[2018-03-09] MEDS ORDERED: LEVOFLOXACIN 500 MG/D5W 100ML PIGGYBACK IV ONE (21:30)
[2018-03-09] MEDS ORDERED: METRONIDAZOLE 500 MG/NS 100 ML PIGGYBACK IV ONE (21:30)
--- NOTE | 2018-03-09 21:30 | NUR ---
Brook (pt's daughter) cell phone# [phone] or [phone] (Steve/pt's daughter )
[2018-03-09 21:31] LABS: BACTERIA,URINE FEW /HPF (NONE SEEN); RBC,URINE 0-3 /HPF (0-3); SQUAMOUS EPITHELIAL CELL,UR FEW /HPF (NONE SEEN); WBC,URINE 50-80 /HPF (0-3)
[2018-03-09] MEDS ORDERED: METRONIDAZOLE 500 MG/NS 100ML 100 ML IV ONE (21:41)
[2018-03-09] MEDS ORDERED: LEVOFLOXACIN 500 MG/D5W 100 ML ONE (22:21)
--- NOTE | 2018-03-09 22:35 | NUR ---
Dr. Muse on panel call with Dr. Keon Gerardo.
--- NOTE | 2018-03-09 22:58 | NUR ---
Pt. admitted to Med/Surg , under care of Dr. Gerardo. Diagnosis: Diverticulitis Belongs List completed. MRSA swab done. Report given to Emeli VARGAS.
[2018-03-09] MEDS ORDERED: ALBUTEROL SULFATE 2.5 MG/3 ML NEBU NEB PRN (23:15)
[2018-03-09] MEDS ORDERED: LEVOFLOXACIN 500 MG/D5W 500 MG in PREMIXED 1 EACH IV SCH (23:15)
[2018-03-09] MEDS ORDERED: hydrALAZINE HCL 25 MG TABLET PO PRN (23:15)
--- NOTE | 2018-03-09 23:15 | NUR ---
RECEIVED PATIENT VIA GURNEY FROM ER. PATIENT IS A/O X3. CENTRAL AFRICAN SPEAKING BUT ABLE TO MAKE SIMPLE NEEDS KNOWN. PATIENT HAS TEMPERATURE OF 100.0, ALL OTHER VS WNL. PATIENT DENIES PAIN OR DISCOMFORT. NO RESP. DISTRESS NOTED. HEPLOCK INTACT AND PATENT, NOTED TO LEFT AC #20 GAUGE. BED ALARM ON. CALL LIGHT IN REACH. ALL NEEDS ATTENDED. WILL CONTINUE TO MONITOR AND ASSESS.
--- NOTE | 2018-03-09 23:45 | NUR ---
PATIENT GIVEN TYLENOL 650MG PO PRN FOR ELEVATED TEMP. AND AMBIEN 5MG PO PRN FOR SLEEP. WILL CONTINUE TO MONITOR.
[2018-03-09] MEDS: ZOLPIDEM 5 MG TABLET PO PRN (23:46)
[2018-03-09] MEDS: ACETAMINOPHEN 325 MG TABLET PO PRN (23:46)
[2018-03-09 23:49] VITALS: BP 111/49
[2018-03-09] MEDS: IV NS 1000 ML 1,000 ML IV PRN (23:54)
[2018-03-10] MEDS ORDERED: METRONIDAZOLE 500 MG/NS 100ML 100 ML IV ONE (02:50)
[2018-03-10 05:03] VITALS: BP 106/51
[2018-03-10] MEDS: METRONIDAZOLE 500 MG/NS 100ML 500 MG in PREMIXED 1 EACH IV SCH ×3 (05:28→22:18)
--- NOTE | 2018-03-10 05:56 | NUR ---
PATIENT ASLEEP IN BED. EASILY AROUSABLE. AFEBRILE. VS WNL. IVF INFUSING WELL TO LEFT AC. BED ALARM ON. CALL LIGHT IN REACH. ALL NEEDS ATTENDED. WILL CONTINUE TO MONITOR.
[2018-03-10 06:15] LABS: BASOPHILS # (AUTO) 0.1 K/uL (0.0-8.0); BASOPHILS % (AUTO) 0.5 % (0.0-2.0); EOSINOPHILS # (AUTO) 0.1 K/uL (0.0-0.7); EOSINOPHILS % (AUTO) 1.2 % (0.0-7.0); HEMATOCRIT 34.5 % (31.2-41.9); HEMOGLOBIN 11.1 g/dL (10.9-14.3); LYMPHOCYTES # (AUTO) 1.7 K/uL (20.0-40.0); LYMPHOCYTES % (AUTO) 15.2 % (20.5-51.5); MEAN CORPUSCULAR HEMOGLOBIN 29.2 uug (24.7-32.8); MEAN CORPUSCULAR HGB CONC 32 g/dL (32.3-35.6); MONOCYTES % (AUTO) 8.7 % (0.0-11.0); NEUTROPHILS # (AUTO) 8.3 K/uL (1.8-8.9); NEUTROPHILS % (AUTO) 74.4 % (38.5-71.5); PLATELET COUNT (AUTO) 165 K/uL (179-408); RED BLOOD CELL COUNT(AUTO) 3.79 MIL/uL (3.63-4.92); WHITE BLOOD COUNT (AUTO) 11.2 K/uL (3.8-11.8)
[2018-03-10 06:26] LABS: ALANINE AMINOTRANSFERASE 16 U/L (14-59); ALKALINE PHOSPHATASE 126 U/L (50-136); ASPARTATE AMINOTRANSFERASE 18 U/L (15-37); BILIRUBIN,TOTAL 0.8 mg/dL (0.2-1.0); CARBON DIOXIDE 25 mmol/L (21-32); CHLORIDE 107 mmol/L (98-107); CREATININE 1.3 mg/dL (0.6-1.3); GLUCOSE 92 mg/dL (74-106); MAGNESIUM 1.8 mg/dL (1.8-2.4); POTASSIUM 3.8 mmol/L (3.5-5.1); TOTAL PROTEIN, SERUM 5.6 g/dL (6.4-8.2); UREA NITROGEN, BLOOD 19 mg/dL (7-18); URIC ACID 6.7 mg/dL (2.6-6.0)
--- NOTE | 2018-03-10 07:00 | NUR ---
Pt is noted in bed, sleeping. All safety needs are met. No respiratory distress noted, pt is on RA. Pt is AxOx3. Will continue to monitor.
[2018-03-10] MEDS ORDERED: PANTOPRAZOLE SODIUM 40 MG TABLET.DR PO SCH (07:30)
[2018-03-10] MEDS: FERROUS SULFATE 325 MG TABEC PO SCH (08:09)
[2018-03-10] MEDS: PROTEIN SUPPLEMENT (PROSTAT) 30 ML LIQUID PO SCH ×2 (08:09→17:22)
[2018-03-10] MEDS: HYDROCODONE/APAP 5-325MG TABLET PO PRN ×2 (08:10→20:55)
[2018-03-10] MEDS ORDERED: Medication Not On Formulary EA (Amino Acids/Protein Hydrolys (Pro-Stat Sugar Free Liquid PO SCH (09:00)
[2018-03-10] MEDS: BRIMONIDINE 0.2% OPHT DROP 10 ML BOTTLE LEFTEYE SCH (09:06)
[2018-03-10] MEDS: DORZOLAMIDE/TIMOLOL OPHT DROP 10 ML BOTTLE LEFTEYE SCH ×2 (09:06→20:49)
[2018-03-10] MEDS: LINAGLIPTIN 5 MG TABLET PO SCH (09:08)
[2018-03-10] MEDS: CLOPIDOGREL 75 MG TABLET PO SCH (09:08)
[2018-03-10] MEDS: CLONAZEPAM 1 MG TABLET PO SCH (09:10)
[2018-03-10] MEDS: ASPIRIN EC 81 MG TABLET.DR PO SCH (09:10)
[2018-03-10] MEDS: MULTIVITAMINS,THERAPEUTIC TABLET PO SCH (09:10)
[2018-03-10] MEDS: ACIDOPHILUS/BULGARICUS CHEW TAB PO SCH ×2 (09:10→17:22)
[2018-03-10] MEDS: CHOLECALCIFEROL 1,000 UNIT TABLET PO SCH (09:11)
[2018-03-10] MEDS: ASCORBIC ACID 500 MG TABLET PO SCH ×2 (09:11→17:22)
[2018-03-10] MEDS: Z GUARD REMEDY PASTE 57 GM TUBE TOP SCH ×2 (09:11→20:53)
[2018-03-10] MEDS: GABAPENTIN 300 MG CAPSULE PO SCH ×2 (09:11→17:22)
[2018-03-10] MEDS: CYANOCOBALAMIN 1,000 MCG TABLET PO SCH (09:11)
[2018-03-10] MEDS: BISOPROLOL FUMARATE 5 MG TABLET PO SCH (09:12)
[2018-03-10 11:54] VITALS: BP 92/51
[2018-03-10 16:19] VITALS: BP 102/42
[2018-03-10] MEDS: ACETAMINOPHEN 325 MG TABLET PO PRN (17:22)
--- NOTE | 2018-03-10 19:04 | NUR ---
no change noted. No respiratory distress noted. All safety needs are met.
[2018-03-10 19:34] VITALS: BP 91/35
[2018-03-10] MEDS: LATANOPROST OPHT DROP 2.5 ML BOTTLE EACHEYE SCH (20:49)
[2018-03-10] MEDS: ATORVASTATIN 10 MG TABLET PO SCH (20:52)
[2018-03-10] MEDS: LEVOFLOXACIN 250MG /D5W 250 MG in PREMIXED 1 EACH IV SCH (20:52)
[2018-03-10] MEDS: ALLOPURINOL 100 MG TABLET PO SCH (20:52)
[2018-03-10] MEDS: ZOLPIDEM 5 MG TABLET PO PRN (20:54)
--- NOTE | 2018-03-10 21:00 | NUR ---
Nursing Note: Pt resting comfortably in bed. Alert oriented x 3, [place] speaking. Pt respirations even and unlabored on room air. No complaints of pain at this time. Right FA 22g intact and patent. No complaints of pain at this time. No adverse reaction to antibiotic noted at this time. Bed in low and locked position. Call light in reach. Frequent visual checks. Will continue to monitor.
--- NOTE | 2018-03-11 00:15 | NUR ---
RECEIVED PATIENT LYING IN BED, ASLEEP BUT EASILY AROUSE TO VERBAL STIMULI. AOX3. IN NO ACUTE DISTRESS. IV SITE ON RIGHT FA INTACT AND PATENT. IVF INFUSING. SAFETY MEASURE INITIATED AND CALL MOLINA WITHIN REACH.
[2018-03-11] MEDS: IV NS 1000 ML 1,000 ML IV PRN (00:26)
[2018-03-11 03:42] VITALS: BP 90/37
[2018-03-11] MEDS: METRONIDAZOLE 500 MG/NS 100ML 500 MG in PREMIXED 1 EACH IV SCH ×3 (05:50→22:16)
--- NOTE | 2018-03-11 06:17 | NUR ---
AOX3. IN NO ACUTE DISTRESS. O2 SAT AT 97% ON RA. IV SITE ON RIGHT FA INTACT AND PATENT. IVF INFUSING. NO ADVERSE EFFECT NOTED FROM IV ABX. NEEDS ATTENDED TO AND MET. SAFETY MEASURE MAINTAINED AND CALL MOLINA WITHIN REACH.
[2018-03-11] MEDS: FERROUS SULFATE 325 MG TABEC PO SCH (06:34)
[2018-03-11] MEDS: PANTOPRAZOLE SODIUM 40 MG TABLET.DR PO SCH (06:35)
[2018-03-11 08:01] LABS: BASOPHILS # (AUTO) 0.1 K/uL (0.0-8.0); BASOPHILS % (AUTO) 0.5 % (0.0-2.0); EOSINOPHILS # (AUTO) 0.1 K/uL (0.0-0.7); EOSINOPHILS % (AUTO) 0.8 % (0.0-7.0); HEMATOCRIT 34.5 % (31.2-41.9); HEMOGLOBIN 11.3 g/dL (10.9-14.3); LYMPHOCYTES # (AUTO) 1.5 K/uL (20.0-40.0); LYMPHOCYTES % (AUTO) 15.2 % (20.5-51.5); MEAN CORPUSCULAR HEMOGLOBIN 30.3 uug (24.7-32.8); MEAN CORPUSCULAR HGB CONC 33 g/dL (32.3-35.6); MEAN CORPUSCULAR VOLUME 92.6 fL (75.5-95.3); MONOCYTES # (AUTO) 0.8 K/uL (2.0-10.0); MONOCYTES % (AUTO) 7.7 % (0.0-11.0); NEUTROPHILS # (AUTO) 7.7 K/uL (1.8-8.9); NEUTROPHILS % (AUTO) 75.8 % (38.5-71.5); PLATELET COUNT (AUTO) 168 K/uL (179-408); RED BLOOD CELL COUNT(AUTO) 3.73 MIL/uL (3.63-4.92); WHITE BLOOD COUNT (AUTO) 10.2 K/uL (3.8-11.8)
[2018-03-11] MEDS: ASPIRIN EC 81 MG TABLET.DR PO SCH (08:08)
[2018-03-11] MEDS: MULTIVITAMINS,THERAPEUTIC TABLET PO SCH (08:08)
[2018-03-11] MEDS: GABAPENTIN 300 MG CAPSULE PO SCH ×2 (08:08→16:04)
[2018-03-11] MEDS: CLONAZEPAM 1 MG TABLET PO SCH (08:08)
[2018-03-11] MEDS: LINAGLIPTIN 5 MG TABLET PO SCH (08:08)
[2018-03-11] MEDS: CYANOCOBALAMIN 1,000 MCG TABLET PO SCH (08:08)
[2018-03-11] MEDS: CLOPIDOGREL 75 MG TABLET PO SCH (08:08)
[2018-03-11] MEDS: ASCORBIC ACID 500 MG TABLET PO SCH ×2 (08:08→16:04)
[2018-03-11] MEDS: CHOLECALCIFEROL 1,000 UNIT TABLET PO SCH (08:08)
[2018-03-11] MEDS: ACIDOPHILUS/BULGARICUS CHEW TAB PO SCH ×2 (08:08→16:04)
[2018-03-11] MEDS: Z GUARD REMEDY PASTE 57 GM TUBE TOP SCH ×2 (08:10→20:22)
[2018-03-11 08:13] LABS: CARBON DIOXIDE 21 mmol/L (21-32); CHLORIDE 112 mmol/L (98-107); CREATININE 1.1 mg/dL (0.6-1.3); GLUCOSE 114 mg/dL (74-106); MAGNESIUM 1.7 mg/dL (1.8-2.4); PHOSPHOROUS 3.3 mg/dL (2.5-4.9); POTASSIUM 3.6 mmol/L (3.5-5.1); UREA NITROGEN, BLOOD 13 mg/dL (7-18)
[2018-03-11] MEDS: PROTEIN SUPPLEMENT (PROSTAT) 30 ML LIQUID PO SCH ×2 (08:14→16:04)
[2018-03-11] MEDS: BRIMONIDINE 0.2% OPHT DROP 10 ML BOTTLE LEFTEYE SCH (08:14)
[2018-03-11] MEDS: DORZOLAMIDE/TIMOLOL OPHT DROP 10 ML BOTTLE LEFTEYE SCH ×2 (08:15→20:22)
[2018-03-11] MEDS: HYDROCODONE/APAP 5-325MG TABLET PO PRN (08:24)
[2018-03-11] MEDS: BISOPROLOL FUMARATE 5 MG TABLET PO SCH (09:00)
[2018-03-11 11:23] VITALS: BP 99/36
--- NOTE | 2018-03-11 12:17 | NUR ---
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 RECOMMENDATIONS MADE FOR SKIN PROTECTION AND CARE. DISCUSSED WITH NURSING STAFF. PT IS ABLE TO TURN AND REPOSITION IN BED. WILL SEE PRN. ATKINS IN AGREEMENT WITH PLAN OF CARE. Addendum: 03/11/18 at 1218 by ANIL SEGURA RN Amended: Links added.
[2018-03-11] MEDS: MAGNESIUM SULFATE/D5W 100 ML IV SCH ×2 (14:34→15:32)
[2018-03-11 15:33] VITALS: BP 106/46
--- NOTE | 2018-03-11 19:10 | NUR ---
RECEIVED PT AWAKE ON BED, AAOX3, NO COMPLAINTS OF ANY DISCOMFORT AT THIS TIME. IV SITE ON RFA, PATENT AND INTACT. SAFETY MEASURES INITIATED, CALL MOLINA WITHIN REACH.
[2018-03-11 20:01] VITALS: BP 109/62
[2018-03-11] MEDS: ATORVASTATIN 10 MG TABLET PO SCH (20:21)
[2018-03-11] MEDS: ALLOPURINOL 100 MG TABLET PO SCH (20:22)
[2018-03-11] MEDS: LATANOPROST OPHT DROP 2.5 ML BOTTLE EACHEYE SCH (20:22)
[2018-03-11] MEDS: LEVOFLOXACIN 250MG /D5W 250 MG in PREMIXED 1 EACH IV SCH (20:23)
[2018-03-11] MEDS: ZOLPIDEM 5 MG TABLET PO PRN (21:38)
[2018-03-12] MEDS: IV NS 1000 ML 1,000 ML IV PRN (00:27)
[2018-03-12] MEDS: HYDROCODONE/APAP 5-325MG TABLET PO PRN ×3 (00:36→20:57)
[2018-03-12 04:40] VITALS: BP 121/51
[2018-03-12 06:09] LABS: BASOPHILS % (AUTO) 0.5 % (0.0-2.0); EOSINOPHILS # (AUTO) 0.1 K/uL (0.0-0.7); HEMATOCRIT 33.6 % (31.2-41.9); HEMOGLOBIN 11.1 g/dL (10.9-14.3); LYMPHOCYTES # (AUTO) 1.3 K/uL (20.0-40.0); LYMPHOCYTES % (AUTO) 16.4 % (20.5-51.5); MEAN CORPUSCULAR HEMOGLOBIN 30.3 uug (24.7-32.8); MEAN CORPUSCULAR HGB CONC 33 g/dL (32.3-35.6); MEAN CORPUSCULAR VOLUME 91.3 fL (75.5-95.3); MONOCYTES # (AUTO) 0.5 K/uL (2.0-10.0); MONOCYTES % (AUTO) 6.4 % (0.0-11.0); NEUTROPHILS # (AUTO) 6.1 K/uL (1.8-8.9); NEUTROPHILS % (AUTO) 75.7 % (38.5-71.5); PLATELET COUNT (AUTO) 176 K/uL (179-408); RED BLOOD CELL COUNT(AUTO) 3.67 MIL/uL (3.63-4.92)
[2018-03-12] MEDS: METRONIDAZOLE 500 MG/NS 100ML 500 MG in PREMIXED 1 EACH IV SCH ×2 (06:09→13:55)
[2018-03-12] MEDS: PANTOPRAZOLE SODIUM 40 MG TABLET.DR PO SCH (06:10)
[2018-03-12] MEDS: FERROUS SULFATE 325 MG TABEC PO SCH (06:10)
[2018-03-12 06:26] LABS: CARBON DIOXIDE 21 mmol/L (21-32); CHLORIDE 110 mmol/L (98-107); CREATININE 1.1 mg/dL (0.6-1.3); GLUCOSE 109 mg/dL (74-106); MAGNESIUM 1.9 mg/dL (1.8-2.4); POTASSIUM 3.6 mmol/L (3.5-5.1); UREA NITROGEN, BLOOD 8 mg/dL (7-18)
[2018-03-12 06:36] LABS: LYMPHOCYTES % (MANUAL) 15 % (20-40); MONOCYTES % (MANUAL) 7 % (2-10); NEUTROPHILS % (MANUAL) 78 % (42-75)
--- NOTE | 2018-03-12 06:58 | NUR ---
PT RESTING COMFORTABLY ON BED, NO SIGNS OF ACUTE DISTRESS NOTED AT THIS TIME. IV SITE ON L HAND, PATENT AND INTACT. SAFE ENVIRONMENT MAINTAINED AT ALL TIMES, CALL MOLINA WITHIN REACH.
[2018-03-12] MEDS: GUAIFENESIN/DEXTROMETHORPHAN 5 ML UDC PO PRN ×3 (08:03→22:13)
[2018-03-12] MEDS: ACIDOPHILUS/BULGARICUS CHEW TAB PO SCH ×2 (08:03→16:24)
[2018-03-12] MEDS: LINAGLIPTIN 5 MG TABLET PO SCH (08:03)
[2018-03-12] MEDS: PROTEIN SUPPLEMENT (PROSTAT) 30 ML LIQUID PO SCH ×2 (08:03→16:25)
[2018-03-12] MEDS: CLONAZEPAM 1 MG TABLET PO SCH (08:04)
[2018-03-12] MEDS: MULTIVITAMINS,THERAPEUTIC TABLET PO SCH (08:04)
[2018-03-12] MEDS: BRIMONIDINE 0.2% OPHT DROP 10 ML BOTTLE LEFTEYE SCH (08:04)
[2018-03-12] MEDS: GABAPENTIN 300 MG CAPSULE PO SCH ×2 (08:04→16:24)
[2018-03-12] MEDS: CYANOCOBALAMIN 1,000 MCG TABLET PO SCH (08:04)
[2018-03-12] MEDS: CHOLECALCIFEROL 1,000 UNIT TABLET PO SCH (08:04)
[2018-03-12] MEDS: CLOPIDOGREL 75 MG TABLET PO SCH (08:04)
[2018-03-12] MEDS: ASCORBIC ACID 500 MG TABLET PO SCH ×2 (08:04→16:24)
[2018-03-12] MEDS: ASPIRIN EC 81 MG TABLET.DR PO SCH (08:04)
[2018-03-12] MEDS: DORZOLAMIDE/TIMOLOL OPHT DROP 10 ML BOTTLE LEFTEYE SCH ×2 (08:05→22:13)
[2018-03-12] MEDS: Z GUARD REMEDY PASTE 57 GM TUBE TOP SCH ×2 (08:12→20:51)
[2018-03-12] MEDS: BISOPROLOL FUMARATE 5 MG TABLET PO SCH (09:00)
[2018-03-12 11:32] VITALS: BP 109/44
[2018-03-12 15:26] VITALS: BP 137/70
--- NOTE | 2018-03-12 19:10 | NUR ---
RECEIVED PT AWAKE ON BED, NO COMPLAINTS OF PAIN OR SOB AT THIS TIME. IV SITE ON L HAND, PATENT AND INTACT. SAFETY MEASURES INITIATED, CALL MOLINA WITHIN REACH.
[2018-03-12 19:48] VITALS: BP 123/45
[2018-03-12] MEDS: LEVOFLOXACIN 250 MG TABLET PO SCH (20:50)
[2018-03-12] MEDS: ATORVASTATIN 10 MG TABLET PO SCH (20:51)
[2018-03-12] MEDS: ALLOPURINOL 100 MG TABLET PO SCH (20:51)
[2018-03-12] MEDS: LATANOPROST OPHT DROP 2.5 ML BOTTLE EACHEYE SCH (20:52)
[2018-03-12] MEDS: ZOLPIDEM 5 MG TABLET PO PRN (22:13)
[2018-03-12] MEDS: METRONIDAZOLE 500 MG TABLET PO SCH (22:15)
[2018-03-13] MEDS: GUAIFENESIN/DEXTROMETHORPHAN 5 ML UDC PO PRN (04:36)
[2018-03-13 05:10] VITALS: BP 144/73
[2018-03-13 06:00] LABS: BASOPHILS % (AUTO) 0.7 % (0.0-2.0); EOSINOPHILS # (AUTO) 0.1 K/uL (0.0-0.7); HEMATOCRIT 36.8 % (31.2-41.9); HEMOGLOBIN 12.2 g/dL (10.9-14.3); LYMPHOCYTES # (AUTO) 1.4 K/uL (20.0-40.0); LYMPHOCYTES % (AUTO) 20.7 % (20.5-51.5); MEAN CORPUSCULAR HEMOGLOBIN 30.6 uug (24.7-32.8); MEAN CORPUSCULAR HGB CONC 33 g/dL (32.3-35.6); MEAN CORPUSCULAR VOLUME 92.2 fL (75.5-95.3); MONOCYTES # (AUTO) 0.5 K/uL (2.0-10.0); MONOCYTES % (AUTO) 7.4 % (0.0-11.0); NEUTROPHILS # (AUTO) 4.7 K/uL (1.8-8.9); NEUTROPHILS % (AUTO) 69.2 % (38.5-71.5); PLATELET COUNT (AUTO) 183 K/uL (179-408); RED BLOOD CELL COUNT(AUTO) 3.99 MIL/uL (3.63-4.92); WHITE BLOOD COUNT (AUTO) 6.8 K/uL (3.8-11.8)
[2018-03-13] MEDS: METRONIDAZOLE 500 MG TABLET PO SCH ×3 (06:06→21:48)
[2018-03-13] MEDS: PANTOPRAZOLE SODIUM 40 MG TABLET.DR PO SCH (06:06)
[2018-03-13] MEDS: FERROUS SULFATE 325 MG TABEC PO SCH (06:06)
[2018-03-13 06:23] LABS: CARBON DIOXIDE 23 mmol/L (21-32); CHLORIDE 110 mmol/L (98-107); CREATININE 1.1 mg/dL (0.6-1.3); GLUCOSE 110 mg/dL (74-106); MAGNESIUM 1.9 mg/dL (1.8-2.4); PHOSPHOROUS 3.4 mg/dL (2.5-4.9); POTASSIUM 3.8 mmol/L (3.5-5.1)
[2018-03-13 06:41] LABS: UREA NITROGEN, BLOOD 6 mg/dL (7-18)
--- NOTE | 2018-03-13 06:51 | NUR ---
PT ASLEEP ON BED, NO SIGNS OF RESPIRATORY DISTRESS NOTED. IV SITE HEPLOCK, PATENT AND INTACT. KEPT WARM AND COMFORTABLE. SAFE ENVIRONMENT MAINTAINED AT ALL TIMES, CALL MOLINA WITHIN REACH.
[2018-03-13] MEDS: HYDROCODONE/APAP 5-325MG TABLET PO PRN (07:29)
[2018-03-13] MEDS: GABAPENTIN 300 MG CAPSULE PO SCH ×2 (08:04→16:16)
[2018-03-13] MEDS: CYANOCOBALAMIN 1,000 MCG TABLET PO SCH (08:04)
[2018-03-13] MEDS: PROTEIN SUPPLEMENT (PROSTAT) 30 ML LIQUID PO SCH ×2 (08:04→16:16)
[2018-03-13] MEDS: CLONAZEPAM 1 MG TABLET PO SCH (08:04)
[2018-03-13] MEDS: ASCORBIC ACID 500 MG TABLET PO SCH ×2 (08:04→16:16)
[2018-03-13] MEDS: LINAGLIPTIN 5 MG TABLET PO SCH (08:04)
[2018-03-13] MEDS: MULTIVITAMINS,THERAPEUTIC TABLET PO SCH (08:04)
[2018-03-13] MEDS: ACIDOPHILUS/BULGARICUS CHEW TAB PO SCH ×2 (08:04→16:16)
[2018-03-13] MEDS: ASPIRIN EC 81 MG TABLET.DR PO SCH (08:04)
[2018-03-13] MEDS: CLOPIDOGREL 75 MG TABLET PO SCH (08:05)
[2018-03-13] MEDS: CHOLECALCIFEROL 1,000 UNIT TABLET PO SCH (08:05)
[2018-03-13] MEDS: BRIMONIDINE 0.2% OPHT DROP 10 ML BOTTLE LEFTEYE SCH (08:28)
[2018-03-13] MEDS: Z GUARD REMEDY PASTE 57 GM TUBE TOP SCH ×2 (08:29→20:20)
[2018-03-13] MEDS: DORZOLAMIDE/TIMOLOL OPHT DROP 10 ML BOTTLE LEFTEYE SCH ×2 (08:29→20:19)
[2018-03-13] MEDS: BISOPROLOL FUMARATE 5 MG TABLET PO SCH (09:00)
[2018-03-13 11:09] VITALS: BP 103/50
[2018-03-13 15:26] VITALS: BP 110/51
--- NOTE | 2018-03-13 19:30 | NUR ---
PATIENT SITTING ON CHAIR. NO DISCOMFORT NOTED. REMINDED SAFETY MEASURES. WILL CONTINUE MONITOR.
[2018-03-13 20:06] VITALS: BP 125/50
[2018-03-13] MEDS: LATANOPROST OPHT DROP 2.5 ML BOTTLE EACHEYE SCH (20:20)
[2018-03-13] MEDS: LEVOFLOXACIN 250 MG TABLET PO SCH (20:20)
[2018-03-13] MEDS: ATORVASTATIN 10 MG TABLET PO SCH (20:20)
[2018-03-13] MEDS: ALLOPURINOL 100 MG TABLET PO SCH (20:20)
[2018-03-13] MEDS: ZOLPIDEM 5 MG TABLET PO PRN (21:49)
[2018-03-14 04:44] VITALS: BP 134/62
[2018-03-14] MEDS: METRONIDAZOLE 500 MG TABLET PO SCH ×3 (05:40→21:25)
[2018-03-14] MEDS: GUAIFENESIN/DEXTROMETHORPHAN 5 ML UDC PO PRN (05:49)
[2018-03-14] MEDS: HYDROCODONE/APAP 5-325MG TABLET PO PRN ×3 (05:49→22:13)
[2018-03-14] MEDS: PANTOPRAZOLE SODIUM 40 MG TABLET.DR PO SCH (06:14)
[2018-03-14 06:33] LABS: BASOPHILS % (AUTO) 0.7 % (0.0-2.0); EOSINOPHILS # (AUTO) 0.1 K/uL (0.0-0.7); EOSINOPHILS % (AUTO) 1.4 % (0.0-7.0); HEMATOCRIT 35.8 % (31.2-41.9); HEMOGLOBIN 11.7 g/dL (10.9-14.3); LYMPHOCYTES # (AUTO) 1.3 K/uL (20.0-40.0); LYMPHOCYTES % (AUTO) 20.9 % (20.5-51.5); MEAN CORPUSCULAR HEMOGLOBIN 30.1 uug (24.7-32.8); MEAN CORPUSCULAR HGB CONC 33 g/dL (32.3-35.6); MEAN CORPUSCULAR VOLUME 91.7 fL (75.5-95.3); MONOCYTES # (AUTO) 0.6 K/uL (2.0-10.0); MONOCYTES % (AUTO) 9.1 % (0.0-11.0); NEUTROPHILS # (AUTO) 4.3 K/uL (1.8-8.9); NEUTROPHILS % (AUTO) 67.9 % (38.5-71.5); PLATELET COUNT (AUTO) 201 K/uL (179-408); WHITE BLOOD COUNT (AUTO) 6.4 K/uL (3.8-11.8)
[2018-03-14 06:39] LABS: CARBON DIOXIDE 24 mmol/L (21-32); CHLORIDE 111 mmol/L (98-107); GLUCOSE 116 mg/dL (74-106); MAGNESIUM 1.8 mg/dL (1.8-2.4); POTASSIUM 3.6 mmol/L (3.5-5.1); UREA NITROGEN, BLOOD 6 mg/dL (7-18)
--- NOTE | 2018-03-14 06:46 | NUR ---
PATIENT SLEEPING INTERMITTENTLY. COUGH MEDICATION ADMINISTERED PATIENT WAS COUGHING . NO N/V/D DURING THE SHIFT. PATIENT AFEBRILE. PAIN MEICATION GIVEN ON C/O PAIN. NO BM DURING THE SHIFT. ALL NEEDS MET . SAFETY MEASURES OBSERVED
[2018-03-14] MEDS: ACIDOPHILUS/BULGARICUS CHEW TAB PO SCH ×2 (08:46→17:11)
[2018-03-14] MEDS: LINAGLIPTIN 5 MG TABLET PO SCH (08:46)
[2018-03-14] MEDS: ASPIRIN EC 81 MG TABLET.DR PO SCH (08:46)
[2018-03-14] MEDS: CLOPIDOGREL 75 MG TABLET PO SCH (08:46)
[2018-03-14] MEDS: CYANOCOBALAMIN 1,000 MCG TABLET PO SCH (08:46)
[2018-03-14] MEDS: GABAPENTIN 300 MG CAPSULE PO SCH ×2 (08:46→17:11)
[2018-03-14] MEDS: MULTIVITAMINS,THERAPEUTIC TABLET PO SCH (08:46)
[2018-03-14] MEDS: CLONAZEPAM 1 MG TABLET PO SCH (08:46)
[2018-03-14] MEDS: CHOLECALCIFEROL 1,000 UNIT TABLET PO SCH (08:46)
[2018-03-14] MEDS: ASCORBIC ACID 500 MG TABLET PO SCH ×2 (08:46→17:11)
[2018-03-14] MEDS: PROTEIN SUPPLEMENT (PROSTAT) 30 ML LIQUID PO SCH ×2 (08:47→17:12)
[2018-03-14] MEDS: DORZOLAMIDE/TIMOLOL OPHT DROP 10 ML BOTTLE LEFTEYE SCH ×2 (08:49→20:04)
[2018-03-14] MEDS: BRIMONIDINE 0.2% OPHT DROP 10 ML BOTTLE LEFTEYE SCH (08:50)
[2018-03-14] MEDS: FERROUS SULFATE 325 MG TABEC PO SCH (08:53)
[2018-03-14] MEDS: ACETAMINOPHEN 325 MG TABLET PO PRN (08:53)
[2018-03-14] MEDS: Z GUARD REMEDY PASTE 57 GM TUBE TOP SCH ×2 (08:54→20:05)
[2018-03-14] MEDS: BISOPROLOL FUMARATE 5 MG TABLET PO SCH (09:00)
[2018-03-14 11:54] VITALS: BP 115/49
[2018-03-14 16:08] VITALS: BP 118/49
--- NOTE | 2018-03-14 18:17 | NUR ---
Pt compliant with medications as scheduled. Pain level tolerable with PRN pain medications as ordered. Pt family visiting at bedside currently. All safety and comfort measures implemented. Bed in locked and lowest position. Call light and personal items within reach. Will continue to monitor and endorse to oncoming night worker.
--- NOTE | 2018-03-14 19:20 | NUR ---
RECEIVED PT AWAKE, ALERT, AND ORIENTEDX3. PT SHOWS NO SIGNS OF DISTRESS. PT IV INTACT AND PATENT.CALL LIGHT WITHIN REACH. BED ALARM ON AND IN LOW POSITION. SAFETY AND COMFORT PROVIDED. WILL CONTINUE TO MONITOR.
[2018-03-14 19:44] VITALS: BP 129/57
[2018-03-14] MEDS: LATANOPROST OPHT DROP 2.5 ML BOTTLE EACHEYE SCH (20:04)
[2018-03-14] MEDS: ALLOPURINOL 100 MG TABLET PO SCH (20:04)
[2018-03-14] MEDS: ATORVASTATIN 10 MG TABLET PO SCH (20:05)
[2018-03-14] MEDS: LEVOFLOXACIN 250 MG TABLET PO SCH (20:05)
[2018-03-14] MEDS: ZOLPIDEM 5 MG TABLET PO PRN (20:11)
[2018-03-15 05:11] VITALS: BP 122/63
[2018-03-15] MEDS: GUAIFENESIN/DEXTROMETHORPHAN 5 ML UDC PO PRN (05:44)
[2018-03-15] MEDS: METRONIDAZOLE 500 MG TABLET PO SCH ×2 (05:47→13:39)
[2018-03-15] MEDS: PANTOPRAZOLE SODIUM 40 MG TABLET.DR PO SCH (06:01)
--- NOTE | 2018-03-15 06:15 | NUR ---
PT SLEPT THROUGHOUT THE SHIFT. PT SHOWS NO SIGNS OF DISTRESS.PT IV INTACT AND PATENT. PRESCRIBED MEDICATION GIVEN AND PT TOLERATED IT WELL. PT GIVEN COUGH MEDICATION FOR HER COUGH.SAFETY AND COMFORT PROVIDED. WILL ENDORSE TO INCOMING NURSE FOR CONTINUITY OF CARE.
[2018-03-15] MEDS: FERROUS SULFATE 325 MG TABEC PO SCH (06:31)
[2018-03-15] MEDS: DORZOLAMIDE/TIMOLOL OPHT DROP 10 ML BOTTLE LEFTEYE SCH (08:47)
[2018-03-15] MEDS: BRIMONIDINE 0.2% OPHT DROP 10 ML BOTTLE LEFTEYE SCH (08:47)
[2018-03-15] MEDS: GABAPENTIN 300 MG CAPSULE PO SCH ×2 (08:48→16:47)
[2018-03-15] MEDS: CYANOCOBALAMIN 1,000 MCG TABLET PO SCH (08:48)
[2018-03-15] MEDS: CLONAZEPAM 1 MG TABLET PO SCH (08:48)
[2018-03-15] MEDS: CHOLECALCIFEROL 1,000 UNIT TABLET PO SCH (08:48)
[2018-03-15] MEDS: LINAGLIPTIN 5 MG TABLET PO SCH (08:48)
[2018-03-15] MEDS: MULTIVITAMINS,THERAPEUTIC TABLET PO SCH (08:48)
[2018-03-15] MEDS: ASPIRIN EC 81 MG TABLET.DR PO SCH (08:48)
[2018-03-15] MEDS: ACIDOPHILUS/BULGARICUS CHEW TAB PO SCH ×2 (08:48→16:47)
[2018-03-15] MEDS: ASCORBIC ACID 500 MG TABLET PO SCH ×2 (08:48→16:46)
[2018-03-15] MEDS: CLOPIDOGREL 75 MG TABLET PO SCH (08:48)
[2018-03-15] MEDS: Z GUARD REMEDY PASTE 57 GM TUBE TOP SCH (08:51)
[2018-03-15] MEDS: BISOPROLOL FUMARATE 5 MG TABLET PO SCH (08:52)
[2018-03-15] MEDS: PROTEIN SUPPLEMENT (PROSTAT) 30 ML LIQUID PO SCH ×2 (08:53→16:46)
[2018-03-15] MEDS: HYDROCODONE/APAP 5-325MG TABLET PO PRN (09:29)
--- NOTE | 2018-03-15 09:54 | NUR ---
PATIENT RESTING IN BED AT THIS TIME. PAIN MANAGEMENT PROVIDED. NO SIGNS OF ASPIRATION. TOLERATING CURRENT DIET WELL. POSSIBLE D/C TODAY. BED ALARM ON, CALL LIGHT WITHIN REACH OF PATIENT. WILL CONTINUE TO MONITOR. SAFETY MEASURES IMPLEMENTED.
[2018-03-15 11:40] VITALS: BP 111/57
[2018-03-15] MEDS ORDERED: METR500T4 PO (13:28)
[2018-03-15] MEDS ORDERED: Levofloxacin PO (13:28)
[2018-03-15 15:32] VITALS: BP 110/74
--- NOTE | 2018-03-15 17:30 | NUR ---
patient discharged at this time in stable condition. patient going back to [facility]. report given to facility. new prescriptions provided. discharge completed. documents sent with ambulance to facility. patient's belongings returned, including dentures (upper/lower). IV-discontinued, id band taken off. [place] [facility] [place]
== END 2018-03-15 17:30 | DRG 244 ==
LOC: ER 17:12 → MED 22:51
PROVIDERS: ADMIT Internal Medicine; ATTEND Nurse Practitioner Acute Care
DX: K57.32 Diverticulitis of large intestine without perforation or abscess without bleeding (principal); N17.0 Acute kidney failure with tubular necrosis; D68.59 Other primary thrombophilia; D69.6 Thrombocytopenia, unspecified; E83.42 Hypomagnesemia; E83.51 Hypocalcemia; I11.0 Hypertensive heart disease with heart failure; I50.32 Chronic diastolic (congestive) heart failure; I05.2 Rheumatic mitral stenosis with insufficiency; D50.9 Iron deficiency anemia, unspecified; E11.9 Type 2 diabetes mellitus without complications; N39.0 Urinary tract infection, site not specified; E78.5 Hyperlipidemia, unspecified; F32.9 Major depressive disorder, single episode, unspecified; E55.9 Vitamin D deficiency, unspecified; I25.10 Atherosclerotic heart disease of native coronary artery without angina pectoris; I05.9 Rheumatic mitral valve disease, unspecified; Z79.84 Long term (current) use of oral hypoglycemic drugs; F41.9 Anxiety disorder, unspecified; M19.90 Unspecified osteoarthritis, unspecified site; G62.9 Polyneuropathy, unspecified; M10.9 Gout, unspecified; N28.1 Cyst of kidney, acquired; D25.9 Leiomyoma of uterus, unspecified; B96.20 Unspecified Escherichia coli [E. coli] as the cause of diseases classified elsewhere; B96.1 Klebsiella pneumoniae [K. pneumoniae] as the cause of diseases classified elsewhere
CPT/HCPCS: 36415; 70030-TC; 71045; 73630; 83605; 83735; 84100; 84550; 85025; 85730; 87040; 87077; 87086; 93005; 97116; 97530; A4663; C1758; J1956; J3475; J3490; J7030; J7040; J8499